=== PATIENT | female | born 1945 | race Caucasian/White ===

== ENCOUNTER → 2016-07-10 | Outpatient (REF) | payer MEDICARE, OTHER ==
[2016-07-10 16:06] LABS: ALBUMIN 3.8 GM/DL (3.2-5.2); ALBUMIN/GLOBULIN RATIO 1.31 (1.00-1.93); ALKALINE PHOSPHATASE 71 U/L (45-117); ALT/SGPT 18 U/L (12-78); ANION GAP 8 MEQ/L (8-16); AST/SGOT 18 U/L (15-37); BILIRUBIN,TOTAL 0.4 MG/DL (0.2-1.0); BLOOD UREA NITROGEN 12 MG/DL (7-18); CARBON DIOXIDE LEVEL 29 MEQ/L (21-32); CHLORIDE LEVEL 99 MEQ/L (98-107); CHOLESTEROL LEVEL 208 MG/DL (<200); CREATININE FOR GFR 0.72 MG/DL (0.55-1.02); GLOMERULAR FILTRATION RATE > 60.0 (>45); GLUCOSE, FASTING 97 MG/DL (80-110); POTASSIUM SERUM 3.8 MEQ/L (3.5-5.1); SODIUM LEVEL 136 MEQ/L (136-145); TOTAL PROTEIN 6.7 GM/DL (6.4-8.2); TRIGLYCERIDES LEVEL 115 MG/DL (<150)
== END ==
LOC: M LABDRAW1 15:28
PROVIDERS: ATTEND Nurse Practitioner Family
DX: E78.4 Other hyperlipidemia (principal); I10 Essential (primary) hypertension

== ENCOUNTER → 2016-12-02 | Outpatient (CLI) | payer MEDICARE, OTHER ==
[~2016-12-02] VITALS: Ht 149.9 cm; Wt 56.2 kg
[~2016-12-02] MED LIST: ASPI1TAB PO; ATEN25TA PO; HYDR12CA PO; LIDOCAINE 2% INJ 100 MG/5 ML SDV (FOR ANES.) As Ordered ONE; LISI30TA4 PO; MULTCAP11 PO; NS 1,000 ML IV ONE; OMEG100011 PO; PROPOFOL 200 MG/20 ML VIAL As Ordered ONE; VITA100L PO
--- NOTE | 2016-12-02 13:29 | ROOR ---
Patient Name: Mirela Machado Procedure Date: 12/02/2016 12:47 PM Date of : 1945 Age: 71 Room: [facility] Gender: Female Note Status: Finalized Procedure: Total Colonoscopy to Cecum Indications: Positive Cologuard test Providers: Edwin Velázquez MD Referring MD: Guillaume Erwin NP Requesting Provider: Medicines: Monitored Anesthesia Care Complications: No immediate complications. Procedure: Pre-Anesthesia Assessment: - The heart rate, respiratory rate, oxygen saturations, blood pressure, adequacy of pulmonary ventilation, and response to care were monitored throughout the procedure. The Colonoscope was introduced through the anus and advanced to the cecum, identified by appendiceal orifice and ileocecal valve. The colonoscopy was performed without difficulty. The patient tolerated the procedure well. The quality of the bowel preparation was excellent. Findings: The perianal and digital rectal examinations were normal. Non-bleeding internal hemorrhoids were found during retroflexion. The hemorrhoids were small and Grade I (internal hemorrhoids that do not prolapse). No other significant abnormalities were identified in a careful examination of the remainder of the colon. The exam was otherwise without abnormality on direct and retroflexion views. Impression: - Non-bleeding internal hemorrhoids. - The examination was otherwise normal on direct and retroflexion views. - No specimens collected. Recommendation: - Discharge patient to home. - Continue present medications. - Repeat colonoscopy for symptoms only. - Return to referring physician. - High fiber diet. - The findings and recommendations were discussed with the patient's family. Edwin Velázquez MD Edwin Velázquez MD 12/02/2016 1:29:30 PM This report has been signed electronically. Number of Addenda: 0 Note Initiated On: 12/02/2016 12:47 PM Estimated Blood Loss: Estimated blood loss: none.
[2016-12-02 13:50] VITALS: BP 132/96
== END | disposition home or self-care (01) ==
LOC: M OPP 11:00
PROVIDERS: ATTEND Internal Medicine Gastroenterology
DX: K64.0 First degree hemorrhoids (principal); K59.00 Constipation, unspecified; I10 Essential (primary) hypertension; M19.90 Unspecified osteoarthritis, unspecified site; Z79.899 Other long term (current) drug therapy; Z79.82 Long term (current) use of aspirin; Z88.0 Allergy status to penicillin

== ENCOUNTER → 2017-01-15 | Outpatient (REF) | payer MEDICARE, OTHER ==
[~2017-01-15] MED LIST changes: -LIDOCAINE 2% INJ 100 MG/5 ML SDV (FOR ANES.) As Ordered ONE; -NS 1,000 ML IV ONE; -PROPOFOL 200 MG/20 ML VIAL As Ordered ONE
[2017-01-15 16:35] LABS: ALBUMIN 3.5 GM/DL (3.2-5.2); ALBUMIN/GLOBULIN RATIO 1.13 (1.00-1.93); ALKALINE PHOSPHATASE 61 U/L (45-117); ALT/SGPT 22 U/L (12-78); ANION GAP 9 MEQ/L (8-16); AST/SGOT 17 U/L (15-37); BILIRUBIN,TOTAL 0.3 MG/DL (0.2-1.0); BLOOD UREA NITROGEN 12 MG/DL (7-18); CALCIUM LEVEL 8.7 MG/DL (8.8-10.2); CARBON DIOXIDE LEVEL 27 MEQ/L (21-32); CHLORIDE LEVEL 100 MEQ/L (98-107); CHOLESTEROL LEVEL 196 MG/DL (<200); CREATININE FOR GFR 0.59 MG/DL (0.55-1.02); GLOMERULAR FILTRATION RATE > 60.0 (>39); GLUCOSE, FASTING 92 MG/DL (83-110); POTASSIUM SERUM 3.8 MEQ/L (3.5-5.1); SODIUM LEVEL 136 MEQ/L (136-145); TOTAL PROTEIN 6.6 GM/DL (6.4-8.2); TRIGLYCERIDES LEVEL 115 MG/DL (<150)
[2017-01-15 16:45] LABS: BASO % 0.7 % (0.0-1.0); EOS # 0.1 K/mm3 (0.0-0.50); EOS % 1.6 % (0.0-3.0); LARGE UNSTAINED CELL # 0.1 K/mm3 (0.0-0.4); LARGE UNSTAINED CELL % 1.7 % (0.0-4.0); LYMPH % 17.3 % (24.0-44.0); MEAN CORPUSCULAR HEMOGLOBIN 30.6 pg (27.0-33.0); MEAN CORPUSCULAR HGB CONC 32.9 g/dl (32.0-36.5); MEAN CORPUSCULAR VOLUME 92.9 fl (80.0-96.0); MONO # 0.4 K/mm3 (0.0-0.8); MONO % 6.9 % (0.0-5.0); NEUTROPHILS # 3.6 K/mm3 (1.8-7.7); NEUTROPHILS % 71.7 % (36.0-66.0); PLATELET COUNT, AUTOMATED 328 k/mm3 (150-450); RED CELL DISTRIBUTION WIDTH 13.5 % (11.5-14.5)
== END ==
LOC: M LABDRAW1 13:51
PROVIDERS: ATTEND Nurse Practitioner Family
DX: K21.9 Gastro-esophageal reflux disease without esophagitis (principal); E78.4 Other hyperlipidemia; I10 Essential (primary) hypertension

== ENCOUNTER → 2017-02-19 | Outpatient (REF) | payer MEDICARE, OTHER ==
[2017-02-19 14:48] LABS: BASO % 0.9 % (0.0-1.0); EOS # 0.2 10^3/uL (0.0-0.50); EOS % 4.3 % (0.0-3.0); IMMATURE GRANULOCYTE % 0.2 % (0-0); LYMPH # 1.1 10^3/uL (1.5-4.5); LYMPH % 24.1 % (24.0-44.0); MEAN CORPUSCULAR HEMOGLOBIN 27.1 pg (27.0-33.0); MEAN CORPUSCULAR HGB CONC 31.6 g/dl (32.0-36.5); MEAN CORPUSCULAR VOLUME 85.8 fl (80.0-96.0); MONO # 0.4 10^3/uL (0.0-0.8); MONO % 9.3 % (0.0-5.0); NEUTROPHILS # 2.7 10^3/uL (1.8-7.7); NEUTROPHILS % 61.2 % (36.0-66.0); PLATELET COUNT, AUTOMATED 332 10^3/uL (150-450); RED CELL DISTRIBUTION WIDTH 14.6 % (11.5-14.5); WHITE BLOOD COUNT 4.4 10^3/uL (4.0-10.0)
[2017-02-19 15:25] LABS: ALBUMIN 3.7 GM/DL (3.2-5.2); ALBUMIN/GLOBULIN RATIO 1.28 (1.00-1.93); ALKALINE PHOSPHATASE 61 U/L (45-117); ALT/SGPT 21 U/L (12-78); ANION GAP 6 MEQ/L (8-16); AST/SGOT 18 U/L (15-37); BILIRUBIN,TOTAL 0.5 MG/DL (0.2-1.0); BLOOD UREA NITROGEN 11 MG/DL (7-18); CALCIUM LEVEL 9.3 MG/DL (8.8-10.2); CARBON DIOXIDE LEVEL 31 MEQ/L (21-32); CHLORIDE LEVEL 97 MEQ/L (98-107); CHOLESTEROL LEVEL 188 MG/DL (<200); CREATININE FOR GFR 0.49 MG/DL (0.55-1.02); GLOMERULAR FILTRATION RATE > 60.0 (>39); GLUCOSE, FASTING 85 MG/DL (83-110); POTASSIUM SERUM 4.4 MEQ/L (3.5-5.1); SODIUM LEVEL 134 MEQ/L (136-145); TOTAL PROTEIN 6.6 GM/DL (6.4-8.2); TRIGLYCERIDES LEVEL 76 MG/DL (<150)
== END ==
LOC: M LABDRAW1 10:48
PROVIDERS: ATTEND Nurse Practitioner Family
DX: K21.9 Gastro-esophageal reflux disease without esophagitis (principal); I10 Essential (primary) hypertension; E78.4 Other hyperlipidemia

== ENCOUNTER → 2017-03-26 | Outpatient (CLI) | payer MEDICARE, OTHER ==
--- NOTE | 2017-03-26 14:00 | REPMRS ---
Patient History The patient states she has not had a clinical breast exam in over a year. Patient is postmenopausal. No known family history of cancer. Digital Woman Screen Mammo: March 26, 2017 - Exam #: [id number] Bilateral CC and MLO view(s) were taken. Technologist: Nicole Moody, Technologist Prior study comparison: September 19, 2015, digital woman screen mammo performed at [facility] to [facility]. September 29, 2012, digital woman screen mammo performed at [facility] to [facility]. FINDINGS: There are scattered fibroglandular densities. There has been no change in the appearance of the mammogram from the prior studies. There is a mild amount of residual fibroglandular tissue which is fairly symmetric. There is no interval development of dominant mass, architectural distortion, or clustered microcalcification suggestive of malignancy. ASSESSMENT: BI-RADS/ACR category 1 mammogram. Negative. Recommendation Routine screening mammogram in 1 year (for women over age 40). This mammogram was interpreted with the aid of an FDA-approved computer-aided dectection system. Electronically Signed By: Anuel Gallegos MD 03/26/17 1400
== END ==
LOC: M WHC 12:58
PROVIDERS: ATTEND Nurse Practitioner Family
DX: Z12.31 Encounter for screening mammogram for malignant neoplasm of breast (principal)

== ENCOUNTER → 2017-07-21 | Outpatient (REF) | payer MEDICARE, OTHER ==
[2017-07-21 15:54] LABS: BASO % 0.7 % (0.0-1.0); EOS # 0.1 10^3/uL (0.0-0.50); EOS % 1.6 % (0.0-3.0); HEMATOCRIT 29.8 % (36.0-47.0); HEMOGLOBIN 9.4 g/dl (12.0-16.0); IMMATURE GRANULOCYTE % 0.2 % (0-3.0); MEAN CORPUSCULAR HEMOGLOBIN 27.3 pg (27.0-33.0); MEAN CORPUSCULAR HGB CONC 31.5 g/dl (32.0-36.5); MEAN CORPUSCULAR VOLUME 86.6 fl (80.0-96.0); MONO # 0.5 10^3/uL (0.0-0.8); MONO % 8.2 % (0.0-5.0); NEUTROPHILS % 71.3 % (36.0-66.0); PLATELET COUNT, AUTOMATED 356 10^3/uL (150-450); RED BLOOD COUNT 3.44 10^6/uL (4.00-5.40); RED CELL DISTRIBUTION WIDTH 14.4 % (11.5-14.5); WHITE BLOOD COUNT 5.6 10^3/uL (4.0-10.0)
== END ==
LOC: M LABDRAW1 14:33
DX: K21.9 Gastro-esophageal reflux disease without esophagitis (principal)
CPT/HCPCS: 85025

== ENCOUNTER → 2017-08-11 | Outpatient (REF) | payer MEDICARE, OTHER ==
[2017-08-11 15:55] LABS: ALBUMIN 3.7 GM/DL (3.2-5.2); ALBUMIN/GLOBULIN RATIO 1.09 (1.00-1.93); ALKALINE PHOSPHATASE 76 U/L (45-117); ALT/SGPT 20 U/L (12-78); ANION GAP 6 MEQ/L (8-16); AST/SGOT 20 U/L (7-37); BILIRUBIN,TOTAL 0.5 MG/DL (0.2-1.0); BLOOD UREA NITROGEN 12 MG/DL (7-18); CALCIUM LEVEL 8.6 MG/DL (8.8-10.2); CARBON DIOXIDE LEVEL 28 MEQ/L (21-32); CHLORIDE LEVEL 101 MEQ/L (98-107); CHOLESTEROL LEVEL 184 MG/DL (<200); CHOLESTEROL RISK RATIO 2.216 (<5); CREATININE FOR GFR 0.66 MG/DL (0.55-1.30); GLOMERULAR FILTRATION RATE > 60.0 (>39); GLUCOSE, FASTING 90 MG/DL (70-100); HDL CHOLESTEROL 83 MG/DL (>40); IRON (FE) 21 UG/DL (50-170); NON-HDL-C 101 MG/DL; POTASSIUM SERUM 3.6 MEQ/L (3.5-5.1); SODIUM LEVEL 135 MEQ/L (136-145); TOTAL PROTEIN 7.1 GM/DL (6.4-8.2); TRIGLYCERIDES LEVEL 55 MG/DL (<150)
[2017-08-11 16:02] LABS: VITAMIN B12 LEVEL 812 PG/ML
[2017-08-11 16:03] LABS: FOLATE > 24.0 NG/ML
[2017-08-11 16:07] LABS: BASO # 0.1 10^3/uL (0.0-0.2); BASO % 1.1 % (0.0-1.0); EOS # 0.1 10^3/uL (0.0-0.50); EOS % 1.9 % (0.0-3.0); HEMOGLOBIN 9.3 g/dl (12.0-15.5); IMMATURE GRANULOCYTE % 0.2 % (0-3.0); LYMPH # 0.8 10^3/uL (1.5-4.5); LYMPH % 17.8 % (24.0-44.0); MEAN CORPUSCULAR HEMOGLOBIN 26.5 pg (27.0-33.0); MEAN CORPUSCULAR VOLUME 85.5 fl (80.0-96.0); MONO # 0.4 10^3/uL (0.0-0.8); MONO % 8.5 % (0.0-5.0); NEUTROPHILS # 3.3 10^3/uL (1.8-7.7); NEUTROPHILS % 70.5 % (36.0-66.0); PLATELET COUNT, AUTOMATED 342 10^3/uL (150-450); RED BLOOD COUNT 3.51 10^6/uL (4.00-5.40); RED CELL DISTRIBUTION WIDTH 14.5 % (11.5-14.5); WHITE BLOOD COUNT 4.7 10^3/uL (4.0-10.0)
== END ==
LOC: M LABDRAW1 11:11
DX: D64.9 Anemia, unspecified (principal); E78.4 Other hyperlipidemia; I10 Essential (primary) hypertension
CPT/HCPCS: 82746

== ENCOUNTER → 2017-09-08 | Outpatient (REF) | payer MEDICARE, OTHER ==
[2017-09-08 16:01] LABS: BASO # 0.1 10^3/uL (0.0-0.2); EOS # 0.1 10^3/uL (0.0-0.50); EOS % 1.3 % (0.0-3.0); HEMATOCRIT 29.7 % (36.0-47.0); HEMOGLOBIN 9.4 g/dl (12.0-15.5); IMMATURE GRANULOCYTE % 0.2 % (0-3.0); LYMPH # 1.1 10^3/uL (1.5-4.5); LYMPH % 17.3 % (24.0-44.0); MEAN CORPUSCULAR HEMOGLOBIN 25.4 pg (27.0-33.0); MEAN CORPUSCULAR HGB CONC 31.6 g/dl (32.0-36.5); MEAN CORPUSCULAR VOLUME 80.3 fl (80.0-96.0); MONO # 0.6 10^3/uL (0.0-0.8); MONO % 8.7 % (0.0-5.0); NEUTROPHILS # 4.5 10^3/uL (1.8-7.7); NEUTROPHILS % 71.5 % (36.0-66.0); PLATELET COUNT, AUTOMATED 361 10^3/uL (150-450); RED CELL DISTRIBUTION WIDTH 14.6 % (11.5-14.5); WHITE BLOOD COUNT 6.3 10^3/uL (4.0-10.0)
[2017-09-08 16:07] LABS: IRON (FE) 39 UG/DL (50-170)
== END ==
LOC: M LABDRAW1 13:45
DX: E61.1 Iron deficiency (principal)
CPT/HCPCS: 83540

== ENCOUNTER → 2017-10-13 | Outpatient (REF) | payer MEDICARE, OTHER ==
[2017-10-13 19:31] LABS: IRON (FE) 12 UG/DL (50-170)
[2017-10-13 19:32] LABS: BASO # 0.1 10^3/uL (0.0-0.2); BASO % 0.8 % (0.0-1.0); EOS # 0.1 10^3/uL (0.0-0.50); HEMATOCRIT 29.7 % (36.0-47.0); HEMOGLOBIN 9.2 g/dl (12.0-15.5); IMMATURE GRANULOCYTE % 0.2 % (0-3.0); LYMPH # 1.2 10^3/uL (1.5-4.5); LYMPH % 19.6 % (24.0-44.0); MEAN CORPUSCULAR HEMOGLOBIN 24.9 pg (27.0-33.0); MEAN CORPUSCULAR VOLUME 80.3 fl (80.0-96.0); MONO # 0.5 10^3/uL (0.0-0.8); NEUTROPHILS % 68.4 % (36.0-66.0); PLATELET COUNT, AUTOMATED 373 10^3/uL (150-450); WHITE BLOOD COUNT 5.9 10^3/uL (4.0-10.0)
== END ==
LOC: M LABDRAW1 18:11
DX: E61.1 Iron deficiency (principal)
CPT/HCPCS: 83540

== ENCOUNTER → 2017-11-18 | Outpatient (REF) | payer MEDICARE, OTHER ==
[2017-11-18 16:20] LABS: IRON (FE) 20 UG/DL (50-170); PERCENT SATURATION 4.3 % (13.2-45.0); REASON FOR REVIEW RBC MORPHOLOGY; SLIDE REVIEW Report; SOURCE PERIPHERAL SMEAR; TOTAL IRON BINDING CAPACITY 468 UG/DL (250-450)
[2017-11-18 16:24] LABS: BASO # 0.1 10^3/uL (0.0-0.2); BASO % 1.1 % (0.0-1.0); EOS # 0.1 10^3/uL (0.0-0.50); EOS % 2.1 % (0.0-3.0); HEMATOCRIT 30.7 % (36.0-47.0); HEMOGLOBIN 9.6 g/dl (12.0-15.5); IMMATURE GRANULOCYTE % 0.2 % (0-3.0); LYMPH # 1.1 10^3/uL (1.5-4.5); LYMPH % 21.5 % (24.0-44.0); MEAN CORPUSCULAR HEMOGLOBIN 24.9 pg (27.0-33.0); MEAN CORPUSCULAR HGB CONC 31.3 g/dl (32.0-36.5); MEAN CORPUSCULAR VOLUME 79.7 fl (80.0-96.0); MONO # 0.4 10^3/uL (0.0-0.8); MONO % 8.2 % (0.0-5.0); NEUTROPHILS # 3.5 10^3/uL (1.8-7.7); NEUTROPHILS % 66.9 % (36.0-66.0); PLATELET COUNT, AUTOMATED 351 10^3/uL (150-450); RED BLOOD COUNT 3.85 10^6/uL (4.00-5.40); RED CELL DISTRIBUTION WIDTH 20.3 % (11.5-14.5); WHITE BLOOD COUNT 5.3 10^3/uL (4.0-10.0)
== END ==
LOC: M LABDRAW1 15:40
DX: E61.1 Iron deficiency (principal)
CPT/HCPCS: 83550

== ENCOUNTER → 2018-04-01 | Outpatient (CLI) | payer MEDICARE, OTHER | LOC: M WHC 14:53 | DX: Z12.31 Encounter for screening mammogram for malignant neoplasm of breast (principal) | CPT/HCPCS: 77067 ==

== ENCOUNTER → 2018-04-13 | Outpatient (REF) | payer MEDICARE, OTHER ==
[2018-04-13 20:02] LABS: BASO # 0.1 10^3/uL (0.0-0.2); BASO % 0.8 % (0.0-1.0); EOS # 0.2 10^3/uL (0.0-0.50); EOS % 2.4 % (0.0-3.0); HEMATOCRIT 38.5 % (36.0-47.0); HEMOGLOBIN 12.7 g/dl (12.0-15.5); IMMATURE GRANULOCYTE % 0.2 % (0-3.0); LYMPH # 1.1 10^3/uL (1.5-4.5); LYMPH % 17.9 % (24.0-44.0); MONO # 0.6 10^3/uL (0.0-0.8); MONO % 9.3 % (0.0-5.0); NEUTROPHILS # 4.3 10^3/uL (1.8-7.7); NEUTROPHILS % 69.4 % (36.0-66.0); PLATELET COUNT, AUTOMATED 288 10^3/uL (150-450); RED BLOOD COUNT 3.85 10^6/uL (4.00-5.40); RED CELL DISTRIBUTION WIDTH 13.2 % (11.5-14.5); WHITE BLOOD COUNT 6.2 10^3/uL (4.0-10.0)
[2018-04-13 20:08] LABS: FERRITIN 18 NG/ML (8-252)
[2018-04-14 09:55] LABS: IRON (FE) 155 UG/DL (50-170)
== END ==
LOC: M LABDRWAD 19:11
DX: E61.1 Iron deficiency (principal)
CPT/HCPCS: 83540

== ENCOUNTER → 2018-08-19 | Outpatient (REF) | payer MEDICARE, OTHER ==
[~2018-08-19] MED LIST changes: -ASPI1TAB PO; +ASPI81TA26 PO; +LISI-672 PO; -LISI30TA4 PO
[2018-08-19 12:56] LABS: BASO # 0.1 10^3/uL (0.0-0.2); EOS # 0.1 10^3/uL (0.0-0.50); EOS % 1.8 % (0.0-3.0); HEMATOCRIT 30.1 % (36.0-47.0); HEMOGLOBIN 9.8 g/dl (12.0-15.5); LYMPH # 1.3 10^3/uL (1.5-4.5); LYMPH % 21.2 % (24.0-44.0); MEAN CORPUSCULAR HEMOGLOBIN 28.4 pg (27.0-33.0); MEAN CORPUSCULAR HGB CONC 32.6 g/dl (32.0-36.5); MEAN CORPUSCULAR VOLUME 87.2 fl (80.0-96.0); MONO # 0.5 10^3/uL (0.0-0.8); MONO % 8.4 % (0.0-5.0); NEUTROPHILS # 4.1 10^3/uL (1.8-7.7); NEUTROPHILS % 67.4 % (36.0-66.0); PLATELET COUNT, AUTOMATED 324 10^3/uL (150-450); RED BLOOD COUNT 3.45 10^6/uL (4.00-5.40); WHITE BLOOD COUNT 6.1 10^3/uL (4.0-10.0)
[2018-08-19 13:20] LABS: ALBUMIN 3.6 GM/DL (3.2-5.2); ALT/SGPT 19 U/L (12-78); BILIRUBIN,TOTAL 0.4 MG/DL (0.2-1.0); BLOOD UREA NITROGEN 8 MG/DL (7-18); CALCIUM LEVEL 8.9 MG/DL (8.8-10.2); CARBON DIOXIDE LEVEL 28 MEQ/L (21-32); CHLORIDE LEVEL 101 MEQ/L (98-107); CHOLESTEROL LEVEL 222 MG/DL (<200); CHOLESTEROL RISK RATIO 2.846 (<5); CREATININE FOR GFR 0.66 MG/DL (0.55-1.30); GLOMERULAR FILTRATION RATE > 60.0 (>39); GLUCOSE, FASTING 97 MG/DL (70-100); HDL CHOLESTEROL 78 MG/DL (>40); IRON (FE) 20 UG/DL (50-170); LDL CHOLESTEROL 127 MG/DL (<100); NON-HDL-C 144 MG/DL; POTASSIUM SERUM 4.1 MEQ/L (3.5-5.1); SODIUM LEVEL 136 MEQ/L (136-145); TOTAL PROTEIN 6.6 GM/DL (6.4-8.2); TRIGLYCERIDES LEVEL 87 MG/DL (<150)
== END ==
LOC: M LABDRWAD 12:21
PROVIDERS: ATTEND Nurse Practitioner Family
DX: E61.1 Iron deficiency (principal); I10 Essential (primary) hypertension

== ENCOUNTER → 2018-09-14 | Outpatient (REF) | payer MEDICARE, OTHER ==
[2018-09-14 13:51] LABS: BASO # 0.1 10^3/uL (0.0-0.2); BASO % 0.9 % (0.0-1.0); EOS # 0.2 10^3/uL (0.0-0.50); EOS % 2.7 % (0.0-3.0); HEMATOCRIT 26.3 % (36.0-47.0); HEMOGLOBIN 8.2 g/dl (12.0-15.5); LYMPH % 15.9 % (24.0-44.0); MEAN CORPUSCULAR HEMOGLOBIN 27.4 pg (27.0-33.0); MEAN CORPUSCULAR HGB CONC 31.2 g/dl (32.0-36.5); MONO # 0.6 10^3/uL (0.0-0.8); MONO % 9.8 % (0.0-5.0); NEUTROPHILS # 4.5 10^3/uL (1.8-7.7); NEUTROPHILS % 70.4 % (36.0-66.0); PLATELET COUNT, AUTOMATED 376 10^3/uL (150-450); RED BLOOD COUNT 2.99 10^6/uL (4.00-5.40); WHITE BLOOD COUNT 6.3 10^3/uL (4.0-10.0)
== END ==
LOC: M LABDRWAD 13:35
PROVIDERS: ATTEND Nurse Practitioner Family
DX: E61.1 Iron deficiency (principal)

== ENCOUNTER → 2018-09-21 | Outpatient (REF) | payer MEDICARE, OTHER ==
[2018-09-23 10:17] LABS: FOLATE 22.1 NG/ML
== END ==
LOC: M LABDRWAD 20:53
PROVIDERS: ATTEND Nurse Practitioner Family
DX: D64.9 Anemia, unspecified (principal)

== ENCOUNTER → 2019-03-08 | Outpatient (REF) | payer MEDICARE, OTHER ==
[2019-03-08 12:49] LABS: BASO # 0.1 10^3/uL (0.0-0.2); BASO % 1.2 % (0.0-1.0); EOS # 0.1 10^3/uL (0.0-0.5); EOS % 2.3 % (0.0-3.0); HEMATOCRIT 28.2 % (36.0-47.0); HEMOGLOBIN 8.6 g/dl (12.0-15.5); LYMPH # 1.4 10^3/uL (1.5-5.0); LYMPH % 24.4 % (24.0-44.0); MEAN CORPUSCULAR HEMOGLOBIN 25.6 pg (27.0-33.0); MEAN CORPUSCULAR HGB CONC 30.5 g/dl (32.0-36.5); MEAN CORPUSCULAR VOLUME 83.9 fl (80.0-96.0); MONO # 0.6 10^3/uL (0.0-0.8); NEUTROPHILS # 3.4 10^3/uL (1.5-8.5); NEUTROPHILS % 60.7 % (36.0-66.0); PLATELET COUNT, AUTOMATED 331 10^3/uL (150-450); RED BLOOD COUNT 3.36 10^6/uL (4.00-5.40); WHITE BLOOD COUNT 5.6 10^3/uL (4.0-10.0)
[2019-03-08 13:01] LABS: ALBUMIN 3.4 GM/DL (3.2-5.2); ALT/SGPT 18 U/L (12-78); BILIRUBIN,TOTAL 0.3 MG/DL (0.2-1.0); BLOOD UREA NITROGEN 14 MG/DL (7-18); CALCIUM LEVEL 9.2 MG/DL (8.8-10.2); CARBON DIOXIDE LEVEL 30 MEQ/L (21-32); CHLORIDE LEVEL 102 MEQ/L (98-107); CREATININE FOR GFR 0.64 MG/DL (0.55-1.30); FERRITIN 5 NG/ML (8-252); GLOMERULAR FILTRATION RATE > 60.0 (>39); GLUCOSE, FASTING 97 MG/DL (70-100); IRON (FE) 18 UG/DL (50-170); POTASSIUM SERUM 4.9 MEQ/L (3.5-5.1); SODIUM LEVEL 136 MEQ/L (136-145); TOTAL IRON BINDING CAPACITY 448 UG/DL (250-450); TOTAL PROTEIN 6.7 GM/DL (6.4-8.2)
== END ==
LOC: M SFHCADAM 10:30
PROVIDERS: ATTEND Physician Assistant Medical
DX: I10 Essential (primary) hypertension (principal); D50.9 Iron deficiency anemia, unspecified
CPT/HCPCS: 80053; 82728; 83550; 84443; 85025; 90682; G0008; G0463

== ENCOUNTER → 2019-05-11 | Outpatient (REF) | payer MEDICARE, OTHER ==
[2019-05-11 17:54] LABS: BASO # 0.1 10^3/uL (0.0-0.2); BASO % 0.6 % (0.0-1.0); EOS # 0.1 10^3/uL (0.0-0.5); EOS % 0.9 % (0.0-3.0); HEMATOCRIT 26.7 % (36.0-47.0); HEMOGLOBIN 7.9 g/dl (12.0-15.5); LYMPH # 2.6 10^3/uL (1.5-5.0); LYMPH % 31.5 % (24.0-44.0); MEAN CORPUSCULAR HEMOGLOBIN 23.8 pg (27.0-33.0); MEAN CORPUSCULAR HGB CONC 29.6 g/dl (32.0-36.5); MEAN CORPUSCULAR VOLUME 80.4 fl (80.0-96.0); MONO # 0.8 10^3/uL (0.0-0.8); MONO % 9.4 % (0.0-5.0); NEUTROPHILS # 4.7 10^3/uL (1.5-8.5); NEUTROPHILS % 57.4 % (36.0-66.0); PLATELET COUNT, AUTOMATED 414 10^3/uL (150-450); RED BLOOD COUNT 3.32 10^6/uL (4.00-5.40); WHITE BLOOD COUNT 8.2 10^3/uL (4.0-10.0)
[2019-05-11 18:00] LABS: PERCENT SATURATION 1.8 % (13.2-45.0)
== END ==
LOC: M SFHCADAM 11:06
PROVIDERS: ATTEND Physician Assistant Medical
DX: D50.9 Iron deficiency anemia, unspecified (principal)

== ENCOUNTER → 2019-05-20 | Outpatient (CLI) | payer MEDICARE, OTHER ==
[~2019-05-20] MED LIST changes: +B-12100T2 PO; +MULTCAP PO; +PANT40TA3 PO
== END ==
LOC: M LAB 13:46
PROVIDERS: ATTEND Physician Assistant Medical
DX: D50.9 Iron deficiency anemia, unspecified (principal)
CPT/HCPCS: 36415; 86850; 86900; 86901; G0463

== ENCOUNTER 2019-05-21 07:43 | Outpatient (CLI) | payer MEDICARE, OTHER ==
[~2019-05-21] VITALS: Ht 149.9 cm; Wt 56.8 kg
[~2019-05-21 07:43] MED LIST changes: -B-12100T2 PO; -MULTCAP PO; -PANT40TA3 PO
[2019-05-21 08:20] VITALS: BP 148/70
[2019-05-21 08:35] VITALS: BP 149/65
[2019-05-21 09:20] VITALS: BP 142/76
[2019-05-21 09:50] VITALS: BP 181/75
[2019-05-21 10:39] VITALS: BP 154/72
== END 2019-05-21 10:40 | disposition home or self-care (01) ==
LOC: M INFU 07:43
PROVIDERS: ATTEND Physician Assistant Medical
DX: D50.9 Iron deficiency anemia, unspecified (principal); Z91.018 Allergy to other foods
CPT/HCPCS: 36430; 86920; P9016

== ENCOUNTER 2019-05-25 11:18 | Outpatient (CLI) | payer MEDICARE, OTHER ==
[~2019-05-25] VITALS: Ht 149.9 cm; Wt 56.8 kg
[2019-05-25 11:30] VITALS: BP 142/65
[2019-05-25] MEDS ORDERED: IRON SUCROSE 75 MG in NS 100 ML IV ONE (11:45)
[2019-05-25] MEDS ORDERED: IRON SUCROSE 25 MG in NS 25 ML IV ONE (11:45)
[2019-05-25] MEDS ORDERED: IRON SUCROSE 200 MG in NS 200 ML IV ONE (12:00)
[2019-05-25 12:30] VITALS: BP 132/68
[2019-05-25 13:20] VITALS: BP 128/71
[2019-05-25 14:08] VITALS: BP 137/65
[2019-05-25 14:30] VITALS: BP 137/65
[2019-05-25 15:00] VITALS: BP 160/81
== END 2019-05-25 15:00 | disposition home or self-care (01) ==
LOC: M INFU 11:18
PROVIDERS: ATTEND Physician Assistant Medical
DX: D50.9 Iron deficiency anemia, unspecified (principal); Z88.0 Allergy status to penicillin
CPT/HCPCS: 96374; J1756

== ENCOUNTER 2019-05-29 11:52 | Inpatient (IN) | payer MEDICARE, OTHER ==
[~2019-05-29] VITALS: Ht 149.9 cm; Wt 53.1 kg
[2019-05-29] VITALS (7 sets, daily range): BP systolic 131–168; BP diastolic 56–83
--- NOTE | 2019-05-29 14:16 | REP ---
Left upper extremity duplex venous ultrasound: History: Left arm swelling. Pain. Status post iron infusion on May 25, 2019. Findings: There is occlusive thrombosis of the median cubital vein and the distal cephalic vein. The mid and proximal cephalic vein are patent and unremarkable. Brachial veins and basilic vein are unremarkable on two-dimensional scanning, compressible, and with normal color Doppler. Similarly, the left subclavian and axillary and internal jugular vein segments are clear. Impression: There is occlusive thrombus in the median cubital vein and in the distal cephalic vein just above the antecubital fossa. Electronically Signed by Franklin Finley MD 05/29/2019 03:07 P
[2019-05-29] MEDS: NS 1,000 ML IV SCH ×2 (14:32→20:41)
[2019-05-29 14:47] LABS: BASO % 0.8 % (0.0-1.0); EOS # 0.2 10^3/uL (0.0-0.5); EOS % 3.3 % (0.0-3.0); HEMATOCRIT 23.1 % (36.0-47.0); LYMPH # 1.2 10^3/uL (1.5-5.0); LYMPH % 22.4 % (24.0-44.0); MEAN CORPUSCULAR HEMOGLOBIN 23.9 pg (27.0-33.0); MEAN CORPUSCULAR HGB CONC 28.6 g/dl (32.0-36.5); MEAN CORPUSCULAR VOLUME 83.7 fl (80.0-96.0); MONO # 0.4 10^3/uL (0.0-0.8); MONO % 7.9 % (0.0-5.0); NEUTROPHILS # 3.4 10^3/uL (1.5-8.5); NEUTROPHILS % 65.4 % (36.0-66.0); PLATELET COUNT, AUTOMATED 316 10^3/uL (150-450); RED BLOOD COUNT 2.76 10^6/uL (4.00-5.40); WHITE BLOOD COUNT 5.2 10^3/uL (4.0-10.0)
[2019-05-29 14:55] LABS: HEMOGLOBIN 6.6 g/dl (12.0-15.5)
[2019-05-29] MEDS ORDERED: ISOVUE-370 76% 100ML VIAL (Q9967) As Ordered ONE (14:58)
[2019-05-29 15:04] LABS: INR 1.03; PROTHROMBIN TIME 13.2 SECONDS (11.8-14.0)
[2019-05-29 15:05] LABS: PARTIAL THROMBOPLASTIN TIME 30.1 SECONDS (25.0-38.4)
--- NOTE | 2019-05-29 15:08 | ECGEPIP ---
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
[2019-05-29 15:13] LABS: ALBUMIN 3.1 GM/DL (3.2-5.2); ALT/SGPT 15 U/L (12-78); BILIRUBIN,TOTAL 0.3 MG/DL (0.2-1.0); BLOOD UREA NITROGEN 11 MG/DL (7-18); CALCIUM LEVEL 8.6 MG/DL (8.8-10.2); CARBON DIOXIDE LEVEL 27 MEQ/L (21-32); CHLORIDE LEVEL 103 MEQ/L (98-107); CREATININE FOR GFR 0.79 MG/DL (0.55-1.30); GLOMERULAR FILTRATION RATE > 60.0 (>39); GLUCOSE, FASTING 91 MG/DL (70-100); POTASSIUM SERUM 4.9 MEQ/L (3.5-5.1); SODIUM LEVEL 138 MEQ/L (136-145); TOTAL PROTEIN 6.2 GM/DL (6.4-8.2)
[2019-05-29] MEDS ORDERED: PANTOPRAZOLE 40MG INJ (PROTONIX) (C9113) IV ONE (15:30)
[2019-05-29] MEDS ORDERED: B-12100T2 PO (15:55)
[2019-05-29] MEDS ORDERED: MULTCAP PO (15:55)
[2019-05-29] MEDS ORDERED: ATEN25TA PO (15:55)
[2019-05-29] MEDS ORDERED: hydrALAZINE INJ 20 MG/ML VIAL IV PRN (17:00)
[2019-05-29] MEDS ORDERED: ACETAMINOPHEN TAB 650MG DOSE (2X325MG) PO PRN (17:00)
[2019-05-29] MEDS ORDERED: hydrALAZINE INJ 20 MG/ML VIAL IV STA (17:30)
[2019-05-29 17:53] LABS: HEMATOCRIT 22.4 % (36.0-47.0); HEMOGLOBIN 6.5 g/dl (12.0-15.5)
--- NOTE | 2019-05-29 17:58 | HPEPDOC ---
[facility] Medical History & Physical Date of Admission May 29, 2019 Date of Service: May 29, 2019 Primary Care Physician: TESSA CARDENAS PA-C Attending Physician: MISBAH GUILLEN MD History and Physical CHIEF COMPLAINT: Arm pain HISTORY OF PRESENT ILLNESS: Patient is 73-year-old female with past medical history with a past medical history significant of iron deficiency anemia. Iron deficiency anemia, hypertension, presented sent to the emergency department left upper extremity pain and swelling following iron infusion on 05/25. Patient complained of left antecubital pain, redness, swelling, and that has progressed since the infusion. This was patient's first ever. This was patient's first ever iron infusion for iron deficiency anemia that was diagnosed 3 years ago. During the initial evaluation, it was discovered the patient had a hemoglobin of 6.6, with a h emoglobin of 23.1. Her previous measurements for hemoglobin and hematocrit were was 7.9 and 26.7 respectively. She was also fecal occult positive in the ED. She denied any blood red blood per rectum, denied abdominal pain, denies any ulcers, denied any epigastric pain, she did report a history of he morrhoids. Patient's last colonoscopy was dated 12/02/2016, performed by Dr. Velázquez due to a positive: Blayne test. Results indicated nonbleeding internal hemorrhoids, with an otherwise normal examination. On direct and retroflex views. . She denied any weight loss, denies any dysphasia, denied any increase in abdominal pain, denied any history of heartburn. She reported shortness of breath and dizziness. A left upper extremity duplex ultrasound was positive for occlusive thrombosis in the median antecubital vein and distal cephalic vein just above the antecubital fossa. Hospital team was called for admission for left upper extremity occlusion and symptomatic anemia. PAST MEDICAL HISTORY: Iron deficiency anemia, hypertension, PAST SURGICAL HISTORY: No history of surgeries SOCIAL HISTORY: Former tobacco smoker, occasional alcohol socially, denies any illicit drug use FAMILY HISTORY: Father of possible clots at age 63. ALLERGIES: Please see below. REVIEW OF SYSTEMS: CONSTITUTIONAL: No fevers, denies chills, denies weight loss, denies lethargy, admits to dizziness HEENT: No rhinorrhea, no itchy eyes, no congesion, CARDIOVASCULAR: No murmurs no palpitations and arrhythmias RESPIRATORY: Admits to shortness of breath GASTROINTESTINAL: No nausea, no vomiting, no difficulty swallowing, no pain with eating, no diarrhea HEMATOLOGICAL: No bleeding GENITOURINARY:No Issues, no hematuria HEMATOLOGIC/LYMPHATIC: No swelling Physical exam VITALS: See Below GENERAL APPEARANCE: Alert no acute distress. Is an elderly female SKIN: Warm, well perfused. ENT: Moist oral mucosa, LUNGS: Clear to auscultation bilaterally. HEART: Normal S1, S2. No murmurs, no rubs, no gallops ABDOMEN: Soft. No masses. Bowel sounds are present. TRUNK/SPINE:Straight. EXTREMITIES: Left antecubital fossa, has some slight erythema, tender to palpate, no discoloration, skin is slightly raised and indurated, PULSES: 2+ upper and lower extremity . HOME MEDICATIONS: Please see below. LABORATORY DATA: See below. IMAGING: Duplex ultrasound of right upper left extremity Impression: There is occlusive thrombus in the median cubital vein and in the distal cephalic vein just above the antecubital fossa. CT angiogram of the chest: Pending official report, sign off from ED physician s tated that there was no pulmonary embolus MICROBIOLOGY: Please see below. ASSESSMENT: Patient is a 73-year-old female with a past medical history of iron deficiency anemia as well as hypertension. Presented with pain and tenderness in her left upper extremity in her antecubital fossa, followed iron infusion. Initial evaluation showed the patient had a hemoglobin of 6.6, along with a positive f ecal occult. One unit of RBC was transfused to patient. Patient will be admitted for symptomatic GI bleed, and superficial thrombophlebitis secondary to iron infusion. PLAN: #GI bleed -Presented hemoglobin and hematocrit was 6.6, and 23.1 respectively -One unit of packed red blood cells ordered -Patient's last colonoscopy was dated 12/02/2016, performed by Dr. Velázquez due to a positive: Blayne test. Results indicated nonbleeding internal hemorrhoids, with an otherwise normal examination. On direct and retroflex views. -Surgery consulted #Superficial thrombophlebitis of the median cubital vein and distal cephalic vein, secondary to iron infusion. -No need for anticoagulation due to distance from axillary vein, -Will treat supportively with cold compresses -If worsening thrombophlebitis. Consider anti-inflammation, such as NSAIDs #Resistant hypertension, patient is on 4 antihypertensive medication and continue to have high BP -Will continue home medications -Evaluate for secondary causes of hypertension with renal ultrasound, aldosterone, and, aldosterone renin ratio, -When necessary 10 g of IV hydralazine every 6 hours for systolic over 160 #Anemia secondary to iron deficiency anemia -Obtain iron levels, obtain, ferritin levels, -One unit of RBC -Patient is unable to tolerate iron supplementation due to severe constipation caused by iron supplementation #DVT -TEDS Vital Signs Vital Signs Date Time Temp Pulse Resp B/P (MAP) Pulse Ox O2 Delivery O2 Flow Rate FiO2 05/29/19 15:33 80 183/79 (113) 81 206/96 (132) 82 238/114 (155) 05/29/19 15:32 16 99 Room Air 05/29/19 11:52 97.7 Laboratory Data Labs 24H Laboratory Tests 2 05/29/19 14:22: Immature Granulocyte % (Auto) 0.2, Neutrophils (%) (Auto) 65.4, Lymphocytes (%) (Auto) 22.4L, Monocytes (%) (Auto) 7.9H, Eosinophils (%) (Auto) 3.3H, Basophils (%) (Auto) 0.8, Neutrophils # (Auto) 3.4, Lymphocytes # (Auto) 1.2L, Monocytes # (Auto) 0.4, Eosinophils # (Auto) 0.2, Basophils # (Auto) 0.0, Nucleated Red Blood Cells % (auto) 0.0, Prothrombin Time 13.2, Prothromb Time International Ratio 1.03, Activated Partial Thromboplast Time 30.1, Anion Gap 8, Glomerular Filtration Rate > 60.0, Calcium Level 8.6L, Total Bilirubin 0.3, Aspartate Amino Transf (AST/SGOT) 49H, Alanine Aminotransferase (ALT/SGPT) 15, Alkaline Phosphatase 62, Total Protein 6.2L, Albumin 3.1L, Albumin/Globulin Ratio 1.00 05/29/19 14:37: POC Glucose (Misc Panel) 97, POC Sodium (Misc Panel) 135L, POC Potassium (Misc Panel) 3.7, POC Chloride (Misc Panel) 101, POC Total CO2 (Misc Panel) 24.0, POC Blood Urea Nitrogen (Misc Panel 11, POC Ionized Calcium (Misc Panel) 4.4L, POC Creatinine (Misc Panel) 0.8, POC Hematocrit (Misc Panel) 20.0L CBC/BMP Laboratory Tests 05/29/19 14:22 Home Medications Scheduled Atenolol (Atenolol) 25 Mg Tablet, 25 MG PO DAILY Cyanocobalamin (Vitamin B-12) (Vitamin B-12) 100 Mcg Tablet, 100 MCG PO DAILY Hydrochlorothiazide (Hydrochlorothiazide) 12.5 Mg Cap, 12.5 MG PO DAILY Lisinopril (Lisinopril) 30 Mg Tab, 30 MG PO DAILY Multivitamin (Multivitamins) 1 Each Capsule, 1 CAP PO DAILY [place]-3 Fatty Acids/Fish Oil ([place] 3 1,000 mg Softgel) 1 Cap Cap, 1,000 CAP PO DAILY Allergies Coded Allergies: Penicillins (Verified Allergy, Severe, DIFFICULTY BREATHING AND SWELLING, 05/24/19) GUNNAR BERG DO May 29, 2019 17:21
[2019-05-29 18:14] LABS: PERCENT SATURATION 2.5 % (13.2-45.0)
[2019-05-29] MEDS: PANTOPRAZOLE 40MG INJ (PROTONIX) (C9113) IV SCH (20:41)
[2019-05-30] VITALS (7 sets, daily range): BP systolic 120–188; BP diastolic 20–92
[2019-05-30] MEDS: NS 1,000 ML IV SCH ×2 (05:00→14:37)
[2019-05-30 05:26] LABS: HEMATOCRIT 25.4 % (36.0-47.0); HEMOGLOBIN 7.6 g/dl (12.0-15.5); MEAN CORPUSCULAR HEMOGLOBIN 25.1 pg (27.0-33.0); MEAN CORPUSCULAR HGB CONC 29.9 g/dl (32.0-36.5); MEAN CORPUSCULAR VOLUME 83.8 fl (80.0-96.0); PLATELET COUNT, AUTOMATED 265 10^3/uL (150-450); RED BLOOD COUNT 3.03 10^6/uL (4.00-5.40); WHITE BLOOD COUNT 4.4 10^3/uL (4.0-10.0)
[2019-05-30 05:41] LABS: BLOOD UREA NITROGEN 6 MG/DL (7-18); CALCIUM LEVEL 8.1 MG/DL (8.8-10.2); CARBON DIOXIDE LEVEL 24 MEQ/L (21-32); CHLORIDE LEVEL 109 MEQ/L (98-107); CREATININE FOR GFR 0.59 MG/DL (0.55-1.30); GLOMERULAR FILTRATION RATE > 60.0 (>39); GLUCOSE, FASTING 89 MG/DL (70-100); POTASSIUM SERUM 3.3 MEQ/L (3.5-5.1); SODIUM LEVEL 139 MEQ/L (136-145)
--- NOTE | 2019-05-30 07:31 | REP ---
CT PULMONARY ANGIOGRAM: WITH IV CONTRAST. HISTORY: DVT. Shortness of breath. COMPARISON STUDIES: No comparison chest CT. CONTRAST DOSE: 75 mL of Isovue [address] TECHNIQUE: Helical scanning is acquired and overlapping 1.5 mm and contiguous 3 mm axial images are reformatted. In addition, maximum intensity projection and multiplanar re-formation images are generated in sagittal and coronal imaging projections. CT PULMONARY ANGIOGRAPHIC FINDINGS: There is good opacification in the pulmonary arterial tree. No filling defect or vessel cutoff is seen to suggest pulmonary embolism. Thoracic aorta shows vascular calcification but no evidence of aneurysm or dissection. There is a [id number] hiatal hernia noted in the middle mediastinum. No hilar or mediastinal mass is observed. No evidence of adenopathy. No pleural or pericardial effusion is seen. Normal adrenal glands are noted bilaterally. Visualized upper abdominal structures are unremarkable. The lung chang show no evidence of infiltrate. No significant mass or nodule is seen. There are scattered tiny 1-2 mm nodules. There is some right apical linear scarring. There is a granulomatous calcification in the right upper lobe. No bony destructive lesion is seen. IMPRESSION: No CT evidence of pulmonary embolus. Scattered granulomatous changes. Large hiatal hernia. Otherwise, no active disease. Electronically Signed by Franklin Finley MD 05/30/2019 08:53 A
[2019-05-30] MEDS: hydroCHLOROthiazide 12.5 MG CAPSULE PO SCH (08:56)
[2019-05-30] MEDS: lisinopriL 10 MG TAB PO SCH (08:56)
[2019-05-30] MEDS: atenoloL 25 MG TAB PO SCH (08:56)
[2019-05-30] MEDS: PANTOPRAZOLE 40MG INJ (PROTONIX) (C9113) IV SCH ×2 (08:57→21:54)
[2019-05-30] MEDS ORDERED: PNEUMOCOCCAL VACCINE 0.5ML SYRINGE(90732) PNEUMOVAX 23 IM ONE (09:00)
[2019-05-30] MEDS ORDERED: POTASSIUM CHLORIDE 10 MEQ SR TABLET PO ONE (09:45)
--- NOTE | 2019-05-30 11:24 | REPVR ---
PROCEDURE INFORMATION: Exam: US Duplex Artery or Vein of the Abdominal and/or Reproductive Organs, Limited Exam date and time: 05/30/2019 10:45 AM Age: 73 years old Clinical indication: Condition or disease; Other: HTN TECHNIQUE: Imaging protocol: Real-time duplex ultrasound scan of the arterial or venous flow of the abdomen and/or reproductive organs, with color Doppler flow and spectral waveform analysis with image documentation. Exam focused on the region of clinical interest. Duplex images were received to evaluate vascular conditions. COMPARISON: No relevant prior studies available. FINDINGS: Right kidney: The right kidney measures 10.2 cm. Normal parenchymal echogenicity. A small area of hypoechogenicity within the central kidney on 1 image (7) is favored artifactual. No hydronephrosis. Right renal peak arterial velocity 110 cm/s. Renal-aortic ratio 0.98. Resistive indices range between 0.72-0.73. Left kidney: The left kidney measures 10.0 cm. Normal parenchymal echogenicity. No hydronephrosis. A 0.7 cm hyperechoic lesion is present within the superior kidney, possibly a small angiomyolipoma. Left renal peak arterial velocity 68.4 centimeters/seconds. Renal-aortic ratio 0.61. Resistive indices range from 0.76-0.78. IMPRESSION: 1. No evidence of renal arterial stenosis. Systolic velocities and renal-aortic ratios are within normal limits. 2. No hydronephrosis. Normal sonographic appearance of the kidneys. PROCEDURE INFORMATION: Exam: US Retroperitoneal Limited, Kidneys Exam date and time: 05/30/2019 10:45 AM Age: 73 years old Clinical indication: Condition or disease; Other: HTN TECHNIQUE: Imaging protocol: Real-time ultrasound of the retroperitoneum with image documentation. Examination was focused on the kidneys. COMPARISON: No relevant prior studies available. FINDINGS: Right kidney: The right kidney measures 10.2 cm. Normal parenchymal echogenicity. A small area of hypoechogenicity within the central kidney on 1 image (7) is favored artifactual. No hydronephrosis. Right renal peak arterial velocity 110 cm/s. Renal-aortic ratio 0.98. Resistive indices range between 0.72-0.73. Left kidney: The left kidney measures 10.0 cm. Normal parenchymal echogenicity. No hydronephrosis. A 0.7 cm hyperechoic lesion is present within the superior kidney, possibly a small angiomyolipoma. Left renal peak arterial velocity 68.4 centimeters/seconds. Renal-aortic ratio 0.61. Resistive indices range from 0.76-0.78. IMPRESSION: 1. No evidence of renal arterial stenosis. Systolic velocities and renal-aortic ratios are within normal limits. 2. No hydronephrosis. Normal sonographic appearance of the kidneys. Electronically signed by: Jerald Sullivan On 05/30/2019 11:23:56 AM
--- NOTE | 2019-05-30 16:26 | IPNPDOC ---
Subjective Date Seen The patient was seen on 05/30/19. Subjective Chief Complaint/HPI Patient seen in PCU. She reported that she felt fairly well. In fact, she was hungry, as she has been NPO since yesterday morning. She has worsening iron deficiency anemia, but hasn't had a discrete bleeding episode. In fact, she notes that she has had chronic constipation since as long as she can remember. I spoke with Dr. Fagan who is aware of the consult. He does not plan to scope her today, but will check his schedule and see when he can work her in; in the meantime,OK for full liquid diet. Constitutional: Denies: Chills, Fever ENT: Reports: Head Aches (mild) Cardiovascular: Denies: Chest Pain Gastrointestinal: Reports: Constipation; Denies: Nausea, Vomiting, Abdominal Pain, Diarrhea Neurological: Denies: Weakness Psych: Reports: Mood Normal Objective Physical Examination General Exam: Positive: Alert, Cooperative, No Acute Distress Eye Exam: Positive: Conjunctiva & lids normal; Negative: Sclera icteric ENT Exam: Positive: Mucous membr. moist/pink Chest Exam: Positive: Clear to auscultation, Normal air movement Heart Exam: Positive: Rate Normal Extremity Exam: Positive: Edema (just proximal to L AC there is erythema and sw elling) Skin Exam: Positive: Nl turgor and temperature; Negative: Rash Neuro Exam: Positive: Normal Speech Psych Exam: Positive: Mental status NL, Mood NL Assessment /Plan Problems (1) Iron deficiency anemia Problem Text: Transfused 1 unit PRBCs. No active bleeding, and denies symptoms. (2) Heme positive stool Status: Acute Problem Text: With no jamar bleeding, this suggests perhaps a slow, chronic loss. Discussed with general surgery, who will plan to scope her (but not today.) Full liquid diet. (3) Cephalic vein thrombosis, left Status: Acute Problem Text: This is from an IV where she just had an iron infusion. (4) Hypertension Status: Chronic Problem Text: Well-controlled in office. Higher than normal in the hospital, though by and large lower than when in the ED. Only symptom that she admits to is a mild headache (and she attributes that to being NPO for 24+ hours.) I am stopping IVFs, until general surgery wishes her to be NPO, as they may be contributing. (5) Superficial thrombophlebitis Status: Acute Problem Text: Sore and erythematous; from site of recent IV infusion. Plan/VTE VTE Prophylaxis Ordered?: Yes VS, I&O, 24H, Fishbone Vital Signs/I&O Vital Signs Date Time Temp Pulse Resp B/P (MAP) Pulse Ox O2 Delivery O2 Flow Rate FiO2 05/30/19 15:41 98.0 74 18 165/77 (106) 100 Room Air I&O- Last 24 Hours up to 6 AM 05/30/19 06:00 Intake Total 3365 ml Output Total 1650 ml Balance 1715 ml Laboratory Data 24H LABS Laboratory Tests 2 05/29/19 17:23: Reticulocyte # (auto) 98.1H, Percent Reticulocyte Count 3.7H, Reticulocyte Hemoglobin Equivalent 26.7, Iron Level 10L, Total Iron Binding Capacity 393, Transferrin % Saturation 2.5L, Ferritin 22 05/30/19 05:00: Nucleated Red Blood Cells % (auto) 0.0, Anion Gap 6L, Glomerular Filtration Rate > 60.0, Calcium Level 8.1L CBC/BMP Laboratory Tests 05/29/19 17:23 05/30/19 05:00 SUAD SOTOMAYOR DO May 30, 2019 16:26
[2019-05-30 17:11] LABS: HEMATOCRIT 28.9 % (36.0-47.0); HEMOGLOBIN 8.7 g/dl (12.0-15.5)
[2019-05-30] MEDS ORDERED: GOLYTELY SOLN 4000 ML BTL PO ONE (18:00)
--- NOTE | 2019-05-30 19:13 | CR.PDOC ---
General Surgery Consultation Date of Consultation 05/30/19 History and Physical CONSULT REPORT FOR: Hospitalist service REASON FOR CONSULTATION: Significant anemia HISTORY OF PRESENT ILLNESS: Patient is currently admitted to the hospital for significant anemia. She has a known and long-term history of iron deficiency anemia. She had a colonoscopy in for workup of her anemia. She had a positive colocolic test at that time. She was found to have nonbleeding internal hemorrhoids but otherwise a normal study. She has been taking oral iron therapy but persisted to be anemic this was decided to give her IV iron infusion therapy. She had one infused on . She actually came to the hospital because of swelling in her arm due to the iron infusion and in the emergency room she had laboratories sent that shows her hemoglobin was down to 6.6. Prior to this on May 11 she had a hemoglobin of 7.9. She denies any overt gastrointestinal bleeding. She denies a nausea or vomiting, passage of bloody stool. In the ER the tested her stool and was found to have positive fecal cold blood tests. I was asked to consider doing an inpatient colonoscopy for workup of her worsening anemia. PAST MEDICAL HISTORY: 1. Iron deficiency anemia 2. Hypertension PAST SURGICAL HISTORY: INCLUDES: 1. Colonoscopy in 2017. ALLERGIES: Please see below. FAMILY HISTORY: Denies any significant history for gastrointestinal malignancy, colon cancer. HOME MEDICATIONS: Please see below. REVIEW OF SYSTEMS: GENERAL: Patient denies any abnormal weight loss. HEENT: Denies blurred vision and double vision. Denies ear symptoms. Denies hoarseness. NECK: Denies any neck pain CARDIOVASCULAR: Denies chest pain and palpitations. MUSCULOSKELETAL: Denies arthralgias, back pain and thrombophlebitis. SKIN: Denies rash. NEUROLOGIC: Denies headache, stroke and transient ischemic attack. PSYCHIATRIC: Denies anxiety and depression. ENDOCRINE: Denies thyroid disease. HEMATOLOGY/ONCOLOGY: Denies bleeding or clotting disorder. She is not on any anticoagulation and even aspirin HEART: Denies any chest pains, palpitations, paroxysmal dyspnea, orthopnea. PULMONARY: Denies chronic cough, dyspnea and wheezing. GASTROINTESTINAL: Denies rectal bleeding, family history of colon cancer, constipation, diarrhea, dysphagia, heartburn and jaundice. GENITOURINARY: Denies dysuria, frequency, hematuria and nocturia. ENDOCRINE: Denies polydipsia, polyphagia, polyuria, heat or cold intolerance. INFECTIOUS: Denies any recent upper respiratory tract infection, UTI, need for use of antibiotics. NUTRITION: Reports good appetite. PHYSICAL EXAMINATION: VITALS SIGNS: Please see below. GENERAL APPEARANCE: Patient appears her stated age, looks very comfortable does not look ill. SKIN: Warm and dry. HEENT: Normocephalic, atraumatic. mild pale palpebral conjunctiva, anicteric sclerae. Lips and mucosa appear moist. NECK: Supple, no thyromegaly. No obvious jugular venous distention. LUNGS: Clear to auscultation bilaterally. No wheezing appreciated. HEART: No chest wall abnormalities. Regular rate and rhythm with no murmurs appreciated. ABDOMEN: Abdomen is slightly rounded soft, and nondistended. With no obvious herniations. No masses on palpation. Nontender on palpation.. EXTREMITIES: Extremities have no deformities. No edema identified ANCILLARIES: . LABORATORY DATA: Please see below. IMAGING STUDIES: . IMPRESSION AND PLAN: Severe anemia I don't anticipate any acute hemorrhagic event given her history likewise her degree of tolerance of this significant anemia. High likelihood of some form of chronic blood loss. She does not really complain of any symptoms pointing to any particular etiology nor of any side effects of the anemia. Her last colonoscopy was in 2017 which I reviewed which was essentially normal. She so far has received 1 unit of blood. She so some trailing of the hemoglobin and hematocrit but no acute drop signify that there is active bleeding. Patient will be scheduled for upper endoscopy and colonoscopy Vital Signs Vital Signs Date Time Temp Pulse Resp B/P (MAP) Pulse Ox O2 Delivery O2 Flow Rate FiO2 05/30/19 17:30 148/80 (102) 05/30/19 15:41 98.0 74 18 100 Room Air I&Os I&O- Last 24 Hours up to 6 AM 05/30/19 06:00 Intake Total 3365 ml Output Total 1650 ml Balance 1715 ml Laboratory Data Labs 24H Laboratory Tests 2 05/30/19 05:00: Nucleated Red Blood Cells % (auto) 0.0, Anion Gap 6L, Glomerular Filtration Rate > 60.0, Calcium Level 8.1L CBC/BMP Laboratory Tests 05/30/19 05:00 05/30/19 16:47 Home Medications Scheduled Atenolol (Atenolol) 25 Mg Tablet, 25 MG PO DAILY, (Reported) Cyanocobalamin (Vitamin B-12) (Vitamin B-12) 100 Mcg Tablet, 100 MCG PO DAILY, (Reported) Hydrochlorothiazide (Hydrochlorothiazide) 12.5 Mg Cap, 12.5 MG PO DAILY, (Reported) Lisinopril (Lisinopril) 30 Mg Tab, 30 MG PO DAILY, (Reported) Multivitamin (Multivitamins) 1 Each Capsule, 1 CAP PO DAILY, (Reported) [place]-3 Fatty Acids/Fish Oil ([place] 3 1,000 mg Softgel) 1 Cap Cap, 1,000 CAP PO DAILY, (Reported) Pantoprazole Sodium (Pantoprazole Sodium) 40 Mg Tablet.dr, 40 MG PO DAILY Allergies Coded Allergies: Penicillins (Verified Allergy, Severe, DIFFICULTY BREATHING AND SWELLING, 05/24/19) MAXIM MCGILL MD May 30, 2019 19:13
[2019-05-31] VITALS: BP 160/90
[2019-05-31 04:00] VITALS: BP 172/82
[2019-05-31 05:02] LABS: HEMATOCRIT 25.4 % (36.0-47.0); HEMOGLOBIN 7.8 g/dl (12.0-15.5); MEAN CORPUSCULAR HEMOGLOBIN 25.3 pg (27.0-33.0); MEAN CORPUSCULAR HGB CONC 30.7 g/dl (32.0-36.5); MEAN CORPUSCULAR VOLUME 82.5 fl (80.0-96.0); PLATELET COUNT, AUTOMATED 304 10^3/uL (150-450); RED BLOOD COUNT 3.08 10^6/uL (4.00-5.40); WHITE BLOOD COUNT 4.3 10^3/uL (4.0-10.0)
[2019-05-31 08:00] VITALS: BP 164/86
[2019-05-31] MEDS ORDERED: PNEUMOCOCCAL VACCINE 0.5ML SYRINGE(90732) PNEUMOVAX 23 IM ONE (09:00)
[2019-05-31] MEDS: PANTOPRAZOLE 40MG INJ (PROTONIX) (C9113) IV SCH (09:45)
[2019-05-31] MEDS ORDERED: IRON DEXTRAN 50 MG/ML IV ONE (10:00)
--- NOTE | 2019-05-31 10:05 | IPNPDOC ---
Subjective Date Seen The patient was seen on 05/31/19. Subjective Chief Complaint/HPI Mrs Machado this morning is feeling pretty good, she is eager to go home. She reports that the swelling in his LUE has improved significantly. She is going for a colonoscopy later today. scheduled for Iron infusion tomorrow. General: Denies: Fatigue Constitutional: Denies: Chills, Fever ENT: Denies: Head Aches Pulmonary: Denies: Dyspnea, Cough Cardiovascular: Denies: Chest Pain, Palpitations Gastrointestinal: Reports: Diarrhea; Denies: Nausea, Vomiting Musculoskeletal: Denies: Neck Pain Neurological: Denies: Weakness Psych: Reports: Mood Normal; Denies: Anxiety, Depression Objective Physical Examination General Exam: Positive: Alert, Cooperative, No Acute Distress ENT Exam: Positive: Mucous membr. moist/pink Chest Exam: Positive: Clear to auscultation, Normal air movement Heart Exam: Positive: Rate Normal Extremity Exam: Positive: Swelling (mild swelling on the antebubital region on the LUE, improved. ); Negative: Edema Skin Exam: Positive: Nl turgor and temperature; Negative: Rash Neuro Exam: Positive: Normal Speech Psych Exam: Positive: Mental status NL, Mood NL Assessment /Plan Problems (1) Iron deficiency anemia Problem Text: 05/31 Pt has received 1 unit pRBCs during this admission. She reports no signs of active bleeding, she had her first iron infusion last week, had declined colonoscopy, agreeable now and scheduled for later today. She is scheduled for her second iron infusion tomorrow, will have this done later today after her colonoscopy, the order has been placed. Her Hgb this morning is 7.8, she was 6.5 on admission. 05/30 Transfused 1 unit PRBCs. No active bleeding, and denies symptoms. (2) Heme positive stool Status: Acute Problem Text: 05/31 Plan for colonoscopy later today. 05/30 With no jamar bleeding, this suggests perhaps a slow, chronic loss. Discussed with general surgery, who will plan to scope her (but not today.) Full liquid diet. (3) Cephalic vein thrombosis, left Status: Acute Problem Text: This is from an IV where she just had an iron infusion. (4) Hypertension Status: Chronic Problem Text: Well-controlled in office. Higher than normal in the hospital, though by and large lower than when in the ED. Only symptom that she admits to is a mild headache (and she attributes that to being NPO for 24+ hours.) I am stopping IVFs, until general surgery wishes her to be NPO, as they may be contributing. (5) Superficial thrombophlebitis Status: Acute Problem Text: Sore and erythematous; from site of recent IV infusion. Plan/VTE VTE Prophylaxis Ordered?: Yes VS, I&O, 24H, Fishbone Vital Signs/I&O Vital Signs Date Time Temp Pulse Resp B/P (MAP) Pulse Ox O2 Delivery O2 Flow Rate FiO2 05/31/19 08:00 97.5 92 16 164/86 (112) 98 Room Air I&O- Last 24 Hours up to 6 AM 05/31/19 06:00 Intake Total 300 ml Output Total 2000 ml Balance -1700 ml Laboratory Data 24H LABS Laboratory Tests 2 05/31/19 04:45: Nucleated Red Blood Cells % (auto) 0.0 CBC/BMP Laboratory Tests 05/30/19 16:47 05/31/19 04:45 TESSA CARDENAS PA-C May 31, 2019 10:04
--- NOTE | 2019-05-31 11:11 | IPNPDOC ---
Text Note Date of Service The patient was seen on 05/31/19. NOTE Patien for UGI endoscopy and colonoscopy today. Denies any abdominal discomfort, shortness of breath, chest pain, light headedness. She tolerated the prep last night. VS stable. On examination, she looks comfortable lung sounds are clear to ausculation She has a regular heart rate and rhythm abdomen is flat, soft, nondistended, nontender Impression anemia probably from chronic blood loss She is for upper GI endoscopy and colonoscopy today. Further recommendations de pending on procedure findings. VS,Fishbone, I+O VS, Fishbone, I+O Laboratory Tests 05/30/19 16:47 05/31/19 04:45 Vital Signs Date Time Temp Pulse Resp B/P (MAP) Pulse Ox O2 Delivery O2 Flow Rate FiO2 05/31/19 08:00 97.5 92 16 164/86 (112) 98 Room Air I&O- Last 24 Hours up to 6 AM 05/31/19 06:00 Intake Total 300 ml Output Total 2000 ml Balance -1700 ml MAXIM MCGILL MD May 31, 2019 11:11
[2019-05-31] MEDS ORDERED: CETACAINE SPRAY 5GM As Ordered ONE (11:26)
[2019-05-31] MEDS ORDERED: fentaNYL 100 MCG/2 ML INJECTION (J3010) As Ordered ONE (11:52)
[2019-05-31] MEDS ORDERED: propofoL 500 MG/50 ML VIAL As Ordered ONE (11:52)
[2019-05-31] MEDS ORDERED: ONDANSETRON 4MG/2ML VIAL (J2405) As Ordered ONE (11:52)
[2019-05-31] MEDS ORDERED: LIDOCAINE 2% INJ 100 MG/5 ML SDV (FOR ANES.) As Ordered ONE (11:52)
[2019-05-31] MEDS ORDERED: LABETALOL HCL 100 MG/20 ML VIAL As Ordered ONE (11:55)
--- NOTE | 2019-05-31 12:57 | ROOR ---
Patient Name: Mirela Machado Procedure Date: 05/31/2019 10:46 AM Date of : 1945 Age: 73 Gender: Female Note Status: Finalized Procedure: Upper GI endoscopy Indications: Iron deficiency anemia secondary to chronic blood loss, Iron deficiency anemia Providers: Rich Fagan MD Referring MD: 2. Inpatient 2. Inpatient Requesting Provider: Medicines: Monitored Anesthesia Care Complications: No immediate complications. Procedure: Pre-Anesthesia Assessment: - Prior to the procedure, a History and Physical was performed, and patient medications and allergies were reviewed. The patient is competent. The risks and benefits of the procedure and the sedation options and risks were discussed with the patient. All questions were answered and informed consent was obtained. Patient identification and proposed procedure were verified by the physician, the nurse and the saddle and side wire stitcher in the procedure room. Mental Status Examination: alert and oriented. Airway Examination: normal oropharyngeal airway and neck mobility. Respiratory Examination: clear to auscultation. CV Examination: normal. Prophylactic Antibiotics: The patient does not require prophylactic antibiotics. Prior Anticoagulants: The patient has taken no previous anticoagulant or antiplatelet agents. ASA Grade Assessment: III - A patient with severe systemic disease. After reviewing the risks and benefits, the patient was deemed in satisfactory condition to undergo the procedure. The anesthesia plan was to use monitored anesthesia care (MAC). Immediately prior to administration of medications, the patient was re-assessed for adequacy to receive sedatives. The heart rate, respiratory rate, oxygen saturations, blood pressure, adequacy of pulmonary ventilation, and response to care were monitored throughout the procedure. The physical status of the patient was re-assessed after the procedure. The Endoscope was introduced through the mouth, and advanced to the third part of duodenum. The upper GI endoscopy was accomplished without difficulty. The patient tolerated the procedure well. Findings: Circumferential salmon-colored mucosa was present at 18 cm. The maximum longitudinal extent of these esophageal mucosal changes was 3 cm in length. Biopsies were taken with a cold forceps for histology. Estimated blood loss was minimal. There were esophageal mucosal changes suspicious for short-segment Bray's esophagus present in the lower third of the esophagus. The maximum longitudinal extent of these mucosal changes was 2 cm in length. A medium-sized hiatal hernia was present. Segmental moderate mucosal changes characterized by congestion and granularity were found in the gastric fundus. This was biopsied with a cold forceps for histology. The gastric antrum was normal. The ampulla, first portion of the duodenum and second portion of the duodenum were normal. Impression: - Klemme-colored mucosa suspicious for short-segment Bray's esophagus. Biopsied. - Esophageal mucosal changes suspicious for short-segment Bray's esophagus. - Medium-sized hiatal hernia. - Congested and granular mucosa in the gastric fundus. Biopsied. - Normal antrum. - Normal ampulla, first portion of the duodenum and second portion of the duodenum. Recommendation: - Await pathology results. - [facility]. - Use Protonix (pantoprazole) 40 mg PO daily today. Attending Participation: I personally performed the entire procedure. Rich Fagan MD Rich Fagan MD 05/31/2019 12:57:04 PM Electronically signed by Rich Fagan MD Number of Addenda: 0 Note Initiated On: 05/31/2019 10:46 AM Estimated Blood Loss: Estimated blood loss was minimal.
--- NOTE | 2019-05-31 13:03 | ROOR ---
Patient Name: Mirela Machado Procedure Date: 05/31/2019 10:39 AM Date of : 1945 Age: 73 Gender: Female Note Status: Finalized Procedure: Colonoscopy Indications: Iron deficiency anemia secondary to chronic blood loss, Iron deficiency anemia Providers: Rich Fagan MD Referring MD: 2. Inpatient 2. Inpatient Requesting Provider: Medicines: Monitored Anesthesia Care Complications: No immediate complications. Procedure: Pre-Anesthesia Assessment: - Prior to the procedure, a History and Physical was performed, and patient medications and allergies were reviewed. The patient is competent. The risks and benefits of the procedure and the sedation options and risks were discussed with the patient. All questions were answered and informed consent was obtained. Patient identification and proposed procedure were verified by the physician, the nurse and the marketer in the procedure room. Mental Status Examination: alert and oriented. Airway Examination: normal oropharyngeal airway and neck mobility. Respiratory Examination: clear to auscultation. CV Examination: normal. Prophylactic Antibiotics: The patient does not require prophylactic antibiotics. Prior Anticoagulants: The patient has taken no previous anticoagulant or antiplatelet agents. ASA Grade Assessment: III - A patient with severe systemic disease. After reviewing the risks and benefits, the patient was deemed in satisfactory condition to undergo the procedure. The anesthesia plan was to use monitored anesthesia care (MAC). Immediately prior to administration of medications, the patient was re-assessed for adequacy to receive sedatives. The heart rate, respiratory rate, oxygen saturations, blood pressure, adequacy of pulmonary ventilation, and response to care were monitored throughout the procedure. The physical status of the patient was re-assessed after the procedure. The Colonoscope was introduced through the anus and advanced to the cecum, identified by appendiceal orifice and ileocecal valve. Findings: The perianal and digital rectal examinations were normal. The colon (entire examined portion) appeared normal. There was a medium-sized lipoma, 2 mm in diameter, in the rectum. just aboe one of the columns of hemorrhoids, there seems to be a prominent submucosal soft tissue lump maybe a lipoma. biopsied/photodocumented Impression: - The entire examined colon is normal. - Medium-sized lipoma in the rectum. - No specimens collected. Recommendation: - [facility]. Attending Participation: I personally performed the entire procedure. Rich Fagan MD Rich Fagan MD 05/31/2019 1:03:03 PM Electronically signed by Rich Fagan MD Number of Addenda: 0 Note Initiated On: 05/31/2019 10:39 AM Estimated Blood Loss: Estimated blood loss: none.
[2019-05-31] MEDS ORDERED: fentaNYL 100 MCG/2 ML INJECTION (J3010) IV PRN (13:15)
[2019-05-31] MEDS ORDERED: ONDANSETRON 4MG/2ML VIAL (J2405) IV PRN (13:15)
[2019-05-31] MEDS ORDERED: LR 1,000 ML IV SCH (13:15)
[2019-05-31] MEDS ORDERED: METOCLOPRAMIDE INJ 10MG/2ML VIAL (J2765) IV PRN (13:15)
[2019-05-31 13:44] VITALS: BP 152/88
[2019-05-31] MEDS: lisinopriL 10 MG TAB PO SCH (13:44)
[2019-05-31] MEDS: atenoloL 25 MG TAB PO SCH (13:44)
[2019-05-31] MEDS: hydroCHLOROthiazide 12.5 MG CAPSULE PO SCH (13:44)
[2019-05-31 13:50] VITALS: BP 152/88
[2019-05-31] MEDS ORDERED: SLF 3 ML SYR IV PRN (14:45)
[2019-05-31 16:00] VITALS: BP 132/64
[2019-05-31] MEDS ORDERED: IRON SUCROSE 200 MG in NS 100 ML OVER 1 HR IV ONE (16:00)
[2019-05-31 17:28] LABS: HEMATOCRIT 27.1 % (36.0-47.0); HEMOGLOBIN 8.3 g/dl (12.0-15.5)
[2019-05-31] MEDS ORDERED: PANT40TA3 PO (18:37)
[2019-05-31] MEDS ORDERED: SLF 3 ML SYR IV SCH (22:00)
[2019-06-01] MEDS ORDERED: PANTOPRAZOLE 40MG TAB (PROTONIX) PO SCH (09:00)
--- NOTE | 2019-06-30 01:27 | DS.PDOC ---
Discharge Summary General Date of Admission May 29, 2019 at 16:39 Date of Discharge May 31, 2019 Primary Care Physician: NORA CARDENAS PA-C Attending Physician: SUAD SOTOMAYOR DO Specialist/Consultants Involve: MAXIM MCGILL MD Discharge Summary PROCEDURES PERFORMED DURING STAY: EGD, colonoscopy, iron infusion, blood transfusion ADMITTING DIAGNOSES: #GI bleed #Superficial thrombophlebitis of the median cubital vein and distal cephalic vein, secondary to iron infusion. #Resistant hypertension, patient is on 4 antihypertensive medication and continue to have high BP #Anemia secondary to iron deficiency anemia DISCHARGE DIAGNOSES: (1) Iron deficiency anemia (2) Heme positive stool (3) Cephalic vein thrombosis, left (4) Hypertension (5) Superficial thrombophlebitis COMPLICATIONS/CHIEF COMPLAINT: Anemia. HISTORY OF PRESENT ILLNESS: Patient is 73-year-old female with past medical history with a past medical history significant of iron deficiency anemia. Iron deficiency anemia, hypertension, presented sent to the emergency department left upper extremity pain and swelling following iron infusion on 05/25. Patient complained of left antecubital pain, redness, swelling, and that has progressed since the infusion. This was patient's first ever. This was patient's first ever iron infusion for iron deficiency anemia that was diagnosed 3 years ago. During the initial evaluation, it was discovered the patient had a hemoglobin of 6.6, with a hemoglobin of 23.1. Her previous measurements for hemoglobin and hematocrit were was 7.9 and 26.7 respectively. She was also fecal occult positive in the ED. She denied any blood red blood per rectum, denied abdominal pain, denies any ulcers, denied any epigastric pain, she did report a history of hemorrhoids. Patient's last colonoscopy was dated 12/02/2016, performed by Dr. Velázquez due to a positive Cologuard test. Results indicated nonbleeding internal hemorrhoids, with an otherwise normal examination. On direct and retroflex views. . She denied any weight loss, denies any dysphasia, denied any increase in abdominal pain, denied any history of heartburn. She reported shortness of breath and dizziness. A left upper extremity duplex ultrasound was positive for occlusive thrombosis in the median antecubital vein and distal cephalic vein just above the antecubital fossa. Hospital team was called for admission for left upper extremity occlusion and symptomatic anemia. HOSPITAL COURSE: Patient was admitted to the hospital. She had no acute bleed ing while here. She received a unit of packed red blood cells, which she tolerate well. She also received an iron infusion. She had an EGD, which showed hiatal hernia, congested and granular gastric mucosa, and Bray's esophagus. She also had a colonoscopy showing a medium sized rectal lipoma. After her procedures, she was feeling well and requested to be discharged home, which she was, to followup with her PCP in the outpatient setting. DISCHARGE MEDICATIONS: Please see below. ALLERGIES: Please see below. PHYSICAL EXAMINATION ON DISCHARGE: VITAL SIGNS: Please see below. GENERAL: elderly female in NAD HEENT: mucous membranes moist NECK: supple CARDIOVASCULAR EXAMINATION: regular rate and rhythm RESPIRATORY EXAMINATION: clear to auscultation bilat ABDOMINAL EXAMINATION: soft, nontender and nondistended EXTREMITIES: no edema SKIN: no rash NEUROLOGICAL EXAMINATION: no focal deficit PSYCHIATRIC EXAMINATION: appropriate mood and affect LABORATORY DATA: Please see below. IMAGING: CT angio showed: No CT evidence of pulmonary embolus. Scattered granulomatous changes. Large hiatal hernia. Otherwise, no active disease. Extremity US showed: There is occlusive thrombus in the median cubital vein and in the distal cephalic vein just above the antecubital fossa. Renal US showed: 1. No evidence of renal arterial stenosis. Systolic velocities and renal-aortic ratios are within normal limits. 2. No hydronephrosis. 3. Normal sonographic appearance of the kidneys. PROGNOSIS: good ACTIVITY: [As tolerated]. DIET: as tolerated DISCHARGE PLAN: discharge home DISPOSITION: 01 Home, Self-Care. DISCHARGE INSTRUCTIONS: Take all medications as prescribed. Call Nora Cardenas's office for a followup appointment. Contact the office for dizziness, blood in stool, dark tarry stool, abdominal pain, or any other concerns. ITEMS TO FOLLOWUP ON ON OUTPATIENT: 1. anemia 2. biopsy results DISCHARGE CONDITION: [Stable]. TIME SPENT ON DISCHARGE: Greater than 10 minutes. Discharge Medications Scheduled Atenolol (Atenolol) 25 Mg Tablet, 25 MG PO DAILY, (Reported) Cyanocobalamin (Vitamin B-12) (Vitamin B-12) 100 Mcg Tablet, 100 MCG PO DAILY, (Reported) Hydrochlorothiazide (Hydrochlorothiazide) 12.5 Mg Cap, 12.5 MG PO DAILY, (Reported) Lisinopril (Lisinopril) 30 Mg Tab, 30 MG PO DAILY, (Reported) Multivitamin (Multivitamins) 1 Each Capsule, 1 CAP PO DAILY, (Reported) [place]-3 Fatty Acids/Fish Oil ([place] 3 1,000 mg Softgel) 1 Cap Cap, 1,000 CAP PO DAILY, (Reported) Pantoprazole Sodium (Pantoprazole Sodium) 40 Mg Tablet.dr, 40 MG PO DAILY Allergies Coded Allergies: Penicillins (Verified Allergy, Severe, DIFFICULTY BREATHING AND SWELLING, 05/24/19) SUAD SOTOMAYOR DO Jun 30, 2019 01:27
== END 2019-05-31 19:21 | disposition home or self-care (01) | DRG 812 ==
LOC: M ED 11:52 → M ED INP 16:39 → CANRESERV 16:55 → ENRESERV 16:55 → ENRESERVTM 18:58 → ENRESERVDT 18:58 → M PCU 19:54
PROVIDERS: ADMIT Internal Medicine; ATTEND Family Medicine
PROC: 30233N1 Transfusion of Nonautologous Red Blood Cells into Peripheral Vein, Percutaneous Approach (ICD-10-PCS; principal; 2019-05-30)
PROC: 0DB78ZX Excision of Stomach, Pylorus, Via Natural or Artificial Opening Endoscopic, Diagnostic (ICD-10-PCS; 2019-05-31)
PROC: 0DBP8ZX Excision of Rectum, Via Natural or Artificial Opening Endoscopic, Diagnostic (ICD-10-PCS; 2019-05-31)
DX: D50.0 Iron deficiency anemia secondary to blood loss (chronic) (principal); I82.612 Acute embolism and thrombosis of superficial veins of left upper extremity; K92.2 Gastrointestinal hemorrhage, unspecified; I10 Essential (primary) hypertension; I80.8 Phlebitis and thrombophlebitis of other sites; Z79.899 Other long term (current) drug therapy; Z88.0 Allergy status to penicillin; K44.9 Diaphragmatic hernia without obstruction or gangrene; K22.70 Barrett's esophagus without dysplasia; K64.9 Unspecified hemorrhoids; T80.89XA Other complications following infusion, transfusion and therapeutic injection, initial encounter

== ENCOUNTER 2019-06-09 07:34 | Outpatient (CLI) | payer MEDICARE, OTHER ==
[~2019-06-09] VITALS: Ht 149.9 cm; Wt 56.8 kg
[~2019-06-09 07:34] MED LIST changes: +B-12100T2 PO; +MULTCAP PO; +PANT40TA3 PO
[2019-06-09 08:00] VITALS: BP 165/79
[2019-06-09] MEDS ORDERED: IRON SUCROSE 100 MG in NS 100 ML OVER 1 HR IV ONE (09:00)
[2019-06-09 09:45] VITALS: BP 151/69
[2019-06-09 10:10] VITALS: BP 164/76
== END 2019-06-09 10:10 | disposition home or self-care (01) ==
LOC: M INFU 07:34
PROVIDERS: ATTEND Physician Assistant Medical
DX: D50.9 Iron deficiency anemia, unspecified (principal); Z88.0 Allergy status to penicillin
CPT/HCPCS: 96365; J1756

== ENCOUNTER → 2019-06-11 | Outpatient (REF) | payer MEDICARE, OTHER ==
[2019-06-11 19:47] LABS: BLOOD UREA NITROGEN 17 MG/DL (7-18); CALCIUM LEVEL 8.4 MG/DL (8.8-10.2); CARBON DIOXIDE LEVEL 31 MEQ/L (21-32); CHLORIDE LEVEL 104 MEQ/L (98-107); CREATININE FOR GFR 0.97 MG/DL (0.55-1.30); GLOMERULAR FILTRATION RATE > 60.0 (>39); GLUCOSE, FASTING 103 MG/DL (70-100); POTASSIUM SERUM 3.8 MEQ/L (3.5-5.1); SODIUM LEVEL 138 MEQ/L (136-145)
[2019-06-11 19:52] LABS: HEMATOCRIT 25.7 % (36.0-47.0); HEMOGLOBIN 7.5 g/dl (12.0-15.5); MEAN CORPUSCULAR HEMOGLOBIN 25.6 pg (27.0-33.0); MEAN CORPUSCULAR HGB CONC 29.2 g/dl (32.0-36.5); MEAN CORPUSCULAR VOLUME 87.7 fl (80.0-96.0); PLATELET COUNT, AUTOMATED 432 10^3/uL (150-450); RED BLOOD COUNT 2.93 10^6/uL (4.00-5.40); WHITE BLOOD COUNT 6.7 10^3/uL (4.0-10.0)
== END ==
LOC: M SFHCADAM 15:14
PROVIDERS: ATTEND Physician Assistant Medical
DX: D50.9 Iron deficiency anemia, unspecified (principal)

== ENCOUNTER 2019-06-15 11:11 | Outpatient (CLI) | payer MEDICARE, OTHER ==
[~2019-06-15] VITALS: Ht 175.3 cm; Wt 56.8 kg
[2019-06-15 11:41] VITALS: BP 132/99
[2019-06-15] MEDS ORDERED: IRON SUCROSE 100 MG in NS 100 ML OVER 1 HR IV ONE (12:00)
[2019-06-15 12:30] VITALS: BP 155/70
[2019-06-15 13:31] VITALS: BP 141/66
== END 2019-06-15 13:30 | disposition home or self-care (01) ==
LOC: M INFU 11:11
PROVIDERS: ATTEND Physician Assistant Medical
DX: D50.9 Iron deficiency anemia, unspecified (principal); Z88.0 Allergy status to penicillin
CPT/HCPCS: 86850; 86900; 86901; 96365; J1756

== ENCOUNTER 2019-06-17 11:11 | Outpatient (CLI) | payer MEDICARE, OTHER ==
[~2019-06-17] VITALS: Ht 149.9 cm; Wt 56.8 kg
[2019-06-17 11:15] VITALS: BP 169/81
[2019-06-17 13:10] VITALS: BP 142/64
[2019-06-17 13:30] VITALS: BP 138/64
[2019-06-17 14:30] VITALS: BP 165/73
[2019-06-17 15:00] VITALS: BP 156/68
[2019-06-17 15:25] VITALS: BP 150/67
== END 2019-06-17 15:25 | disposition home or self-care (01) ==
LOC: M INFU 11:11
PROVIDERS: ATTEND Physician Assistant Medical
DX: D64.9 Anemia, unspecified (principal); Z88.0 Allergy status to penicillin
CPT/HCPCS: 36430; 86920; P9016

== ENCOUNTER → 2019-08-20 | Outpatient (REF) | payer MEDICARE, OTHER ==
[2019-08-20 13:10] LABS: HEMATOCRIT 34.2 % (36.0-47.0); HEMOGLOBIN 10.7 g/dl (12.0-15.5); MEAN CORPUSCULAR HEMOGLOBIN 25.7 pg (27.0-33.0); MEAN CORPUSCULAR HGB CONC 31.3 g/dl (32.0-36.5); MEAN CORPUSCULAR VOLUME 82.2 fl (80.0-96.0); PLATELET COUNT, AUTOMATED 283 10^3/uL (150-450); RED BLOOD COUNT 4.16 10^6/uL (4.00-5.40); WHITE BLOOD COUNT 4.5 10^3/uL (4.0-10.0)
[2019-08-20 13:31] LABS: PERCENT SATURATION 5.4 % (13.2-45.0)
== END ==
LOC: M SFHCADAM 08:26
PROVIDERS: ATTEND Physician Assistant
DX: D50.9 Iron deficiency anemia, unspecified (principal)

== ENCOUNTER → 2019-10-13 | Outpatient (CLI) | payer MEDICARE, OTHER ==
[~2019-10-13] MED LIST changes: +E-Z-PAQUE 96% w/w SUSP 176GM BTL As Ordered ONE; -LISI-672 PO; +LISI30TA4 PO
--- NOTE | 2019-10-14 19:09 | REP ---
Small bowel follow-through The procedure was performed under the direct supervision of Dr. Gallegos. The images were reviewed with Dr. Gallegos. The material mover film shows no organomegaly or pathological masses. The intestinal gas pattern is nonspecific. Liquid barium was administered and the barium column was followed through the small bowel to the level of the terminal ileum. Small bowel transit time is approximately 1 hour . Note is made of a large hiatal hernia. During fluoroscopy gentle palpation shows all loops are freely movable and pliable. There are no fixed or angulated loops. The small bowel mucosal pattern is normal in course and caliber. There is no transition to suggest a partial small bowel obstruction. Spot filming of the terminal ileum shows it to be unremarkable. Impression: There is a large hiatal hernia. Otherwise, Small bowel follow-through examination within normal limits. 0.6 minutes of fluoro time was utilized for this procedure. Electronically Signed by ANA MARIA Grande 10/13/2019 03:51 P Electronically Signed by Anuel Gallegos MD 10/14/2019 07:00 P
== END ==
LOC: M RAD 10:25
PROVIDERS: ATTEND Internal Medicine Gastroenterology
DX: D50.9 Iron deficiency anemia, unspecified (principal); K44.9 Diaphragmatic hernia without obstruction or gangrene

== ENCOUNTER → 2020-01-13 | Outpatient (REF) | payer MEDICARE, OTHER ==
[~2020-01-13] MED LIST changes: -E-Z-PAQUE 96% w/w SUSP 176GM BTL As Ordered ONE; +PANT40TA29 PO; -PANT40TA3 PO
[2020-01-13 13:42] LABS: BASO # 0.1 10^3/uL (0.0-0.2); EOS # 0.2 10^3/uL (0.0-0.5); EOS % 2.8 % (0.0-3.0); HEMATOCRIT 34.8 % (36.0-47.0); HEMOGLOBIN 10.9 g/dl (12.0-15.5); LYMPH # 1.2 10^3/uL (1.5-5.0); LYMPH % 20.2 % (24.0-44.0); MEAN CORPUSCULAR HEMOGLOBIN 25.7 pg (27.0-33.0); MEAN CORPUSCULAR HGB CONC 31.3 g/dl (32.0-36.5); MEAN CORPUSCULAR VOLUME 82.1 fl (80.0-96.0); MONO # 0.6 10^3/uL (0.0-0.8); MONO % 9.3 % (0.0-5.0); NEUTROPHILS % 66.4 % (36.0-66.0); PLATELET COUNT, AUTOMATED 325 10^3/uL (150-450); RED BLOOD COUNT 4.24 10^6/uL (4.00-5.40)
[2020-01-13 14:53] LABS: ALBUMIN 3.8 GM/DL (3.2-5.2); ALT/SGPT 14 U/L (12-78); BILIRUBIN,TOTAL 0.6 MG/DL (0.2-1.0); BLOOD UREA NITROGEN 9 MG/DL (7-18); CALCIUM LEVEL 9.5 MG/DL (8.8-10.2); CARBON DIOXIDE LEVEL 29 MEQ/L (21-32); CHLORIDE LEVEL 99 MEQ/L (98-107); CHOLESTEROL LEVEL 228 MG/DL (<200); CREATININE FOR GFR 0.64 MG/DL (0.55-1.30); FERRITIN 5 NG/ML (8-252); GLOMERULAR FILTRATION RATE > 60.0 (>39); GLUCOSE, FASTING 87 MG/DL (70-100); HDL CHOLESTEROL 88 MG/DL (>40); IRON (FE) 34 UG/DL (50-170); LDL CHOLESTEROL 128 MG/DL (<100); NON-HDL-C 140 MG/DL; PERCENT SATURATION 7.9 % (13.2-45.0); POTASSIUM SERUM 4.3 MEQ/L (3.5-5.1); SODIUM LEVEL 134 MEQ/L (136-145); TOTAL IRON BINDING CAPACITY 432 UG/DL (250-450); TOTAL PROTEIN 7.4 GM/DL (6.4-8.2); TRIGLYCERIDES LEVEL 61 MG/DL (<150)
== END ==
LOC: M SFHCADAM 12:55
PROVIDERS: ATTEND Physician Assistant Medical
DX: D50.8 Other iron deficiency anemias (principal); E66.01 Morbid (severe) obesity due to excess calories; Z79.899 Other long term (current) drug therapy

== ENCOUNTER 2020-07-05 15:57 | Outpatient (CLI) | payer MEDICARE, OTHER ==
[2020-07-05] VITALS (10 sets, daily range): BP systolic 118–149; BP diastolic 58–73
[2020-07-06] VITALS: BP 118/58
[2020-07-06 00:20] LABS: HEMATOCRIT 23.4 % (36.0-47.0); HEMOGLOBIN 7.1 g/dl (12.0-15.5); MEAN CORPUSCULAR HEMOGLOBIN 22.3 pg (27.0-33.0); MEAN CORPUSCULAR HGB CONC 30.3 g/dl (32.0-36.5); MEAN CORPUSCULAR VOLUME 73.6 fl (80.0-96.0); PLATELET COUNT, AUTOMATED 276 10^3/uL (150-450); RED BLOOD COUNT 3.18 10^6/uL (4.00-5.40); WHITE BLOOD COUNT 6.6 10^3/uL (4.0-10.0)
[2020-07-06 12:25] LABS: RSV AMPLIFICATION NEGATIVE (NEGATIVE)
== END 2020-07-06 00:08 | disposition home or self-care (01) ==
LOC: M OPCLI4PV 15:57 → M MSPAV 16:09 → M OPCLI4PV 07-06 00:08
PROVIDERS: ATTEND Family Medicine
DX: D50.9 Iron deficiency anemia, unspecified (principal); Z88.0 Allergy status to penicillin
CPT/HCPCS: 36415; 71046; 80053; 82607; 82728; 82746; 83036; 83550; 84439; 84443; 85027; 85046; 86850; 86900; 86901; 86920; 87631; 93005; P9016

== ENCOUNTER → 2020-07-05 | Outpatient (CLI) | payer MEDICARE, OTHER ==
--- NOTE | 2020-07-05 12:39 | REP ---
INDICATION: HYPERTENSIVE LEFT VENTRICULAR HYPERTROPHY, W/O HEART FAILURE COMPARISON: None. TECHNIQUE: PA/Lateral FINDINGS: Lungs: Clear, no infiltrate. Heart: Normal in size. Mediastinum: There is calcification and tortuosity of the thoracic aorta. The mediastinal silhouette is otherwise unremarkable. Pleural angles: Unremarkable.. Bones and soft tissues: There are mild diffuse degenerative changes of the spine without compression deformity. There is curvature of the thoracic spine convex to the right. IMPRESSION: No acute pulmonary disease. <Electronically signed by Anuel Gallegos > 07/05/20 [id number]
== END ==
LOC: M ADAMS 09:57
PROVIDERS: ATTEND Family Medicine
DX: R53.83 Other fatigue (principal); I11.9 Hypertensive heart disease without heart failure

== ENCOUNTER → 2020-07-05 | Outpatient (REF) | payer MEDICARE, OTHER ==
[2020-07-05 14:04] LABS: MEAN CORPUSCULAR HEMOGLOBIN 16.7 pg (27.0-33.0); MEAN CORPUSCULAR HGB CONC 26.7 g/dl (32.0-36.5); MEAN CORPUSCULAR VOLUME 62.8 fl (80.0-96.0); PLATELET COUNT, AUTOMATED 349 10^3/uL (150-450); RED BLOOD COUNT 2.39 10^6/uL (4.00-5.40); WHITE BLOOD COUNT 6.2 10^3/uL (4.0-10.0)
[2020-07-05 14:27] LABS: ALBUMIN 3.5 GM/DL (3.2-5.2); ALT/SGPT 13 U/L (12-78); BILIRUBIN,TOTAL 0.3 MG/DL (0.2-1.0); BLOOD UREA NITROGEN 13 MG/DL (7-18); CARBON DIOXIDE LEVEL 25 MEQ/L (21-32); CHLORIDE LEVEL 98 MEQ/L (98-107); CREATININE FOR GFR 0.88 MG/DL (0.55-1.30); FERRITIN < 3 NG/ML (8-252); FREE T4 1.13 NG/DL (0.76-1.46); GLOMERULAR FILTRATION RATE > 60.0 (>39); GLUCOSE, FASTING 110 MG/DL (70-100); IRON (FE) < 5 UG/DL (50-170); POTASSIUM SERUM 3.4 MEQ/L (3.5-5.1); SODIUM LEVEL 132 MEQ/L (136-145); TOTAL IRON BINDING CAPACITY 521 UG/DL (250-450); TOTAL PROTEIN 6.6 GM/DL (6.4-8.2)
[2020-07-05 14:30] LABS: VITAMIN B12 LEVEL 699 PG/ML (247-911)
[2020-07-05 14:31] LABS: FOLATE > 24.0 NG/ML (>5.4)
== END ==
LOC: M SFHCADAM 09:52
PROVIDERS: ATTEND Family Medicine
DX: R53.83 Other fatigue (principal); D50.9 Iron deficiency anemia, unspecified; Z79.899 Other long term (current) drug therapy

== ENCOUNTER → 2020-07-11 | Outpatient (CLI) | payer MEDICARE, OTHER ==
--- NOTE | 2020-07-17 10:59 | ECHO ---
DATE OF PROCEDURE: 07/11/2020 Age: 74 Gender: Female Height: 150 cm Weight: 58 kg REFERRING PHYSICIAN: GARRETT Pickering INDICATION: Left ventricular hypertrophy. MEASUREMENTS: 2D Measurements: Left ventricle diastole 4.7 cm Intraventricular septum 1.06 cm Posterior wall 1.02 cm Aortic root 2.7 cm Left atrium 2.6 cm Left atrial volume index 36 cm Inferior vena cava 2.0 cm with more than 50% respiratory variation Doppler Measurements: No aortic stenosis No aortic regurgitation Aortic valve velocity 150 cm/s LVOT velocity 91.0 cm/s Trace mitral regurgitation Mitral E velocity 103 cm/s Mitral A velocity 113 cm/s Mitral deceleration time 208 msec Mild tricuspid regurgitation Estimated right ventricular systolic pressure 31-36 mmHg Estimated right atrial pressure 5-10 mmHg Mild pulmonic regurgitation MITRAL ANNULAR TISSUE DOPPLER E prime lateral 7.2 cm/s DESCRIPTION: Rhythm was sinus. Image quality as fair. No pericardial effusion. This was a 2D, M-mode, color flow Doppler, and pulsed wave Doppler examination including mitral annular tissue Doppler. CONCLUSIONS: 1. Normal left ventricle internal dimensions and wall thickness. Normal regional LV wall motion and wall thickening. Normal LV systolic function. LVEF 70% by visual estimate. Normal LV diastolic function. 2. Moderate left atrial enlargement by left atrial volume index. 3. Mild aortic valve sclerosis of a 3-cuspid aortic valve. No aortic regurgitation. 4. Mild mitral annular calcification. Trace mitral regurgitation. 5. Suggestive of mild elevation of estimated right ventricle systolic pressure. 6. Otherwise normal appearing echocardiogram Doppler findings. MTDD
== END ==
LOC: M CARPUL 11:20
PROVIDERS: ATTEND Physician Assistant
DX: I11.9 Hypertensive heart disease without heart failure (principal)

== ENCOUNTER → 2020-07-13 | Outpatient (REF) | payer MEDICARE, OTHER ==
[2020-07-13 15:56] LABS: HEMATOCRIT 25.2 % (36.0-47.0); HEMOGLOBIN 7.2 g/dl (12.0-15.5)
== END ==
LOC: M SFHCADAM 11:33
PROVIDERS: ATTEND Physician Assistant Medical
DX: D50.9 Iron deficiency anemia, unspecified (principal)
CPT/HCPCS: 85014; 85018; G0463

== ENCOUNTER 2020-10-06 16:13 | Emergency (ER) | payer MEDICARE, OTHER ==
[~2020-10-06] VITALS: Ht 149.9 cm; Wt 75.5 kg
[~2020-10-06 16:13] MED LIST changes: +COLA100C5 PO; +COVI30VI IM; +MULT-90 PO
[2020-10-06] MEDS ORDERED: HYDR12.55 PO (16:30)
[2020-10-06 19:06] LABS: HEMATOCRIT 43.5 % (36.0-47.0); MEAN CORPUSCULAR HEMOGLOBIN 27.2 pg (27.0-33.0); MEAN CORPUSCULAR HGB CONC 32.2 g/dl (32.0-36.5); MEAN CORPUSCULAR VOLUME 84.6 fl (80.0-96.0); PLATELET COUNT, AUTOMATED 278 10^3/uL (150-450); RED BLOOD COUNT 5.14 10^6/uL (4.00-5.40); WHITE BLOOD COUNT 7.2 10^3/uL (4.0-10.0)
[2020-10-06] MEDS ORDERED: amLODIPine 5 MG TAB PO ONE (19:25)
[2020-10-06] MEDS ORDERED: GNP250TA9 PO (19:31)
[2020-10-06 19:38] VITALS: BP 214/146
[2020-10-06 19:42] LABS: CK-MB VALUE MASS < 1.0 NG/ML (<3.6); CPK CREATINE PHOSPHOKINASE 69 U/L (26-192); MB/CK RELATIVE INDEX 1.45 (< OR =4); TROPONIN I < 0.02 NG/ML (< 0.10)
[2020-10-06] MEDS ORDERED: NORV5TAB PO (21:10)
[2020-10-06 21:41] VITALS: BP 164/86
--- NOTE | 2020-10-07 08:54 | ECGEPIP ---
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
== END 2020-10-06 21:48 | disposition home or self-care (01) ==
LOC: M ED 16:13
DX: I16.0 Hypertensive urgency (principal); Z79.899 Other long term (current) drug therapy; Z88.0 Allergy status to penicillin; Z87.891 Personal history of nicotine dependence

== ENCOUNTER → 2020-12-22 | Outpatient (REF) | payer MEDICARE, OTHER ==
[~2020-12-22] MED LIST changes: +GNP250TA9 PO; +HYDR12.55 PO; +NORV5TAB PO
[2020-12-22 12:48] LABS: BASO % 0.8 % (0.0-1.0); EOS # 0.2 10^3/uL (0.0-0.5); EOS % 4.2 % (0.0-3.0); HEMOGLOBIN 12.1 g/dl (12.0-15.5); LYMPH % 24.7 % (24.0-44.0); MEAN CORPUSCULAR HEMOGLOBIN 31.6 pg (27.0-33.0); MEAN CORPUSCULAR HGB CONC 33.6 g/dl (32.0-36.5); MONO # 0.5 10^3/uL (0.0-0.8); MONO % 12.5 % (2.0-8.0); NEUTROPHILS # 2.2 10^3/uL (1.5-8.5); NEUTROPHILS % 57.5 % (36.0-66.0); PLATELET COUNT, AUTOMATED 216 10^3/uL (150-450); RED BLOOD COUNT 3.83 10^6/uL (4.00-5.40); WHITE BLOOD COUNT 3.8 10^3/uL (4.0-10.0)
[2020-12-22 13:30] LABS: ALBUMIN 3.7 GM/DL (3.2-5.2); ALT/SGPT 20 U/L (12-78); BILIRUBIN,TOTAL 0.5 MG/DL (0.2-1.0); BLOOD UREA NITROGEN 15 MG/DL (7-18); CALCIUM LEVEL 9.2 MG/DL (8.8-10.2); CARBON DIOXIDE LEVEL 28 MEQ/L (21-32); CHLORIDE LEVEL 99 MEQ/L (98-107); CREATININE FOR GFR 0.73 MG/DL (0.55-1.30); FERRITIN 170 NG/ML (8-252); GLOMERULAR FILTRATION RATE > 60.0 (>39); GLUCOSE, FASTING 91 MG/DL (70-100); IRON (FE) 93 UG/DL (50-170); PERCENT SATURATION 32.5 % (13.2-45.0); SODIUM LEVEL 135 MEQ/L (136-145); TOTAL IRON BINDING CAPACITY 286 UG/DL (250-450); TOTAL PROTEIN 6.6 GM/DL (6.4-8.2)
== END ==
LOC: M LAB REF 12:31
PROVIDERS: ATTEND Internal Medicine Medical Oncology
DX: D50.9 Iron deficiency anemia, unspecified (principal)

== ENCOUNTER → 2021-01-18 | Outpatient (REF) | payer MEDICARE, OTHER | LOC: M SFHCADAM 13:50 | PROVIDERS: ATTEND Physician Assistant Medical | DX: L29.0 Pruritus ani (principal); Z79.899 Other long term (current) drug therapy ==

== ENCOUNTER → 2021-08-02 | Outpatient (REF) | payer MEDICARE, OTHER ==
[2021-08-02 16:58] LABS: HEMATOCRIT 39.3 % (36.0-47.0); HEMOGLOBIN 13.5 g/dl (12.0-15.5); MEAN CORPUSCULAR HEMOGLOBIN 32.2 pg (27.0-33.0); MEAN CORPUSCULAR HGB CONC 34.4 g/dl (32.0-36.5); MEAN CORPUSCULAR VOLUME 93.8 fl (80.0-96.0); PLATELET COUNT, AUTOMATED 249 10^3/uL (150-450); RED BLOOD COUNT 4.19 10^6/uL (4.00-5.40); WHITE BLOOD COUNT 7.2 10^3/uL (4.0-10.0)
== END ==
LOC: M SFHCADAM 13:51
PROVIDERS: ATTEND Physician Assistant Medical
DX: K22.719 Barrett's esophagus with dysplasia, unspecified (principal); I10 Essential (primary) hypertension

== ENCOUNTER 2021-08-28 09:29 | Emergency (ER) | payer MEDICARE, OTHER ==
[~2021-08-28] VITALS: Ht 149.9 cm; Wt 59.2 kg
[2021-08-28] MEDS ORDERED: CIPR500T39 (10:00)
[2021-08-28] MEDS ORDERED: NEUR100C PO (12:00)
[2021-08-28] MEDS ORDERED: VALT1TAB PO (12:00)
[2021-08-28 12:09] VITALS: BP 160/90
[2021-08-28 12:45] LABS: ALBUMIN 3.9 GM/DL (3.2-5.2); ALT/SGPT 24 U/L (12-78); BILIRUBIN,DIRECT 0.1 MG/DL (0.0-0.2); BILIRUBIN,TOTAL 0.4 MG/DL (0.2-1.0); BLOOD UREA NITROGEN 11 MG/DL (7-18); CALCIUM LEVEL 9.8 MG/DL (8.8-10.2); CARBON DIOXIDE LEVEL 28 MEQ/L (21-32); CHLORIDE LEVEL 102 MEQ/L (98-107); GLOMERULAR FILTRATION RATE > 60.0 (>39); GLUCOSE, FASTING 99 MG/DL (70-100); POTASSIUM SERUM 4.1 MEQ/L (3.5-5.1); SODIUM LEVEL 137 MEQ/L (136-145); TOTAL PROTEIN 7.3 GM/DL (6.4-8.2)
== END 2021-08-28 12:42 | disposition home or self-care (01) ==
LOC: M ED 09:29
DX: B02.9 Zoster without complications (principal); I10 Essential (primary) hypertension; E61.1 Iron deficiency; G43.909 Migraine, unspecified, not intractable, without status migrainosus; M81.0 Age-related osteoporosis without current pathological fracture; Z82.49 Family history of ischemic heart disease and other diseases of the circulatory system; Z83.3 Family history of diabetes mellitus; Z86.718 Personal history of other venous thrombosis and embolism; Z87.09 Personal history of other diseases of the respiratory system; Z87.440 Personal history of urinary (tract) infections; Z88.0 Allergy status to penicillin; Z79.899 Other long term (current) drug therapy

== ENCOUNTER → 2021-09-24 | Outpatient (CLI) | payer MEDICARE, OTHER ==
[~2021-09-24] MED LIST changes: +CIPR500T39; +DOCU-153 PO; +NEUR100C PO; +VALT1TAB PO
[2021-09-24 13:51] LABS: BASO # 0.1 10^3/uL (0.0-0.2); BASO % 1.3 % (0.0-1.0); EOS # 0.3 10^3/uL (0.0-0.5); EOS % 5.8 % (0.0-3.0); HEMATOCRIT 41.5 % (36.0-47.0); HEMOGLOBIN 13.9 g/dl (12.0-15.5); LYMPH # 1.2 10^3/uL (1.5-5.0); LYMPH % 27.4 % (24.0-44.0); MEAN CORPUSCULAR HEMOGLOBIN 32.6 pg (27.0-33.0); MEAN CORPUSCULAR HGB CONC 33.5 g/dl (32.0-36.5); MEAN CORPUSCULAR VOLUME 97.4 fl (80.0-96.0); MONO # 0.5 10^3/uL (0.0-0.8); MONO % 11.5 % (2.0-8.0); NEUTROPHILS # 2.4 10^3/uL (1.5-8.5); NEUTROPHILS % 53.8 % (36.0-66.0); PLATELET COUNT, AUTOMATED 228 10^3/uL (150-450); RED BLOOD COUNT 4.26 10^6/uL (4.00-5.40); WHITE BLOOD COUNT 4.5 10^3/uL (4.0-10.0)
[2021-09-24 14:25] LABS: ALBUMIN 3.7 GM/DL (3.2-5.2); ALT/SGPT 14 U/L (12-78); BILIRUBIN,TOTAL 0.4 MG/DL (0.2-1.0); BLOOD UREA NITROGEN 12 MG/DL (7-18); CALCIUM LEVEL 9.4 MG/DL (8.8-10.2); CARBON DIOXIDE LEVEL 32 MEQ/L (21-32); CHLORIDE LEVEL 103 MEQ/L (98-107); CREATININE FOR GFR 0.65 MG/DL (0.55-1.30); FERRITIN 21 NG/ML (8-252); GLOMERULAR FILTRATION RATE > 60.0 (>39); GLUCOSE, FASTING 101 MG/DL (70-100); IRON (FE) 78 UG/DL (50-170); PERCENT SATURATION 22.3 % (13.2-45.0); SODIUM LEVEL 139 MEQ/L (136-145); TOTAL IRON BINDING CAPACITY 350 UG/DL (250-450); VITAMIN B12 LEVEL 672 PG/ML
== END ==
LOC: M ADAMS 10:51
PROVIDERS: ATTEND Internal Medicine Medical Oncology
DX: D50.9 Iron deficiency anemia, unspecified (principal)

== ENCOUNTER → 2022-01-25 | Outpatient (REF) | payer MEDICARE, OTHER ==
[2022-01-25 16:54] LABS: BASO # 0.1 10^3/uL (0.0-0.2); EOS # 0.1 10^3/uL (0.0-0.5); EOS % 2.4 % (0.0-3.0); HEMATOCRIT 38.6 % (36.0-47.0); HEMOGLOBIN 12.8 g/dl (12.0-15.5); LYMPH # 1.1 10^3/uL (1.5-5.0); LYMPH % 19.5 % (24.0-44.0); MEAN CORPUSCULAR HEMOGLOBIN 32.4 pg (27.0-33.0); MEAN CORPUSCULAR HGB CONC 33.2 g/dl (32.0-36.5); MEAN CORPUSCULAR VOLUME 97.7 fl (80.0-96.0); MONO # 0.7 10^3/uL (0.0-0.8); MONO % 12.2 % (2.0-8.0); NEUTROPHILS # 3.7 10^3/uL (1.5-8.5); NEUTROPHILS % 64.6 % (36.0-66.0); PLATELET COUNT, AUTOMATED 273 10^3/uL (150-450); RED BLOOD COUNT 3.95 10^6/uL (4.00-5.40); WHITE BLOOD COUNT 5.7 10^3/uL (4.0-10.0)
[2022-01-25 17:49] LABS: ALBUMIN 3.7 GM/DL (3.2-5.2); ALT/SGPT 15 U/L (12-78); BILIRUBIN,TOTAL 0.4 MG/DL (0.2-1.0); BLOOD UREA NITROGEN 20 MG/DL (7-18); CALCIUM LEVEL 9.3 MG/DL (8.8-10.2); CARBON DIOXIDE LEVEL 28 MEQ/L (21-32); CHLORIDE LEVEL 101 MEQ/L (98-107); CHOLESTEROL LEVEL 243 MG/DL (<200); CHOLESTEROL RISK RATIO 3.115 (<5); CREATININE FOR GFR 0.84 MG/DL (0.55-1.30); GLOMERULAR FILTRATION RATE > 60.0 (>39); GLUCOSE, FASTING 103 MG/DL (70-100); HDL CHOLESTEROL 78 MG/DL (>40); LDL CHOLESTEROL 134 MG/DL (<100); NON-HDL-C 165 MG/DL; POTASSIUM SERUM 5.2 MEQ/L (3.5-5.1); SODIUM LEVEL 136 MEQ/L (136-145); TOTAL PROTEIN 6.8 GM/DL (6.4-8.2); TRIGLYCERIDES LEVEL 155 MG/DL (<150)
[2022-01-25 18:02] LABS: MALB URINE SIEMENS 6.2 MG/L; MAU/CREAT RATIO 21.3 MCG/MG (0.0-30.0)
[2022-01-25 19:30] LABS: TOTAL 25(OH) VITAMIN D 33.7 NG/ML (30.0-100.0)
== END ==
LOC: M SFHCADAM 13:40
PROVIDERS: ATTEND Physician Assistant Medical
DX: D50.9 Iron deficiency anemia, unspecified (principal); K22.719 Barrett's esophagus with dysplasia, unspecified; I11.9 Hypertensive heart disease without heart failure; Z79.899 Other long term (current) drug therapy

== ENCOUNTER → 2022-03-15 | Outpatient (CLI) | payer MEDICARE, OTHER ==
[2022-03-15 17:22] LABS: BASO # 0.1 10^3/uL (0.0-0.2); BASO % 0.8 % (0.0-1.0); EOS # 0.2 10^3/uL (0.0-0.5); EOS % 2.3 % (0.0-3.0); HEMATOCRIT 41.3 % (36.0-47.0); HEMOGLOBIN 13.8 g/dl (12.0-15.5); LYMPH # 1.8 10^3/uL (1.5-5.0); LYMPH % 22.6 % (24.0-44.0); MEAN CORPUSCULAR HGB CONC 33.4 g/dl (32.0-36.5); MEAN CORPUSCULAR VOLUME 98.8 fl (80.0-96.0); MONO # 0.6 10^3/uL (0.0-0.8); MONO % 8.2 % (2.0-8.0); NEUTROPHILS # 5.1 10^3/uL (1.5-8.5); PLATELET COUNT, AUTOMATED 251 10^3/uL (150-450); RED BLOOD COUNT 4.18 10^6/uL (4.00-5.40); WHITE BLOOD COUNT 7.8 10^3/uL (4.0-10.0)
[2022-03-15 17:59] LABS: ALT/SGPT 21 U/L (12-78); BILIRUBIN,TOTAL 0.5 MG/DL (0.2-1.0); BLOOD UREA NITROGEN 18 MG/DL (7-18); CALCIUM LEVEL 9.5 MG/DL (8.8-10.2); CARBON DIOXIDE LEVEL 29 MEQ/L (21-32); CHLORIDE LEVEL 101 MEQ/L (98-107); CREATININE FOR GFR 0.85 MG/DL (0.55-1.30); FERRITIN 90 NG/ML (8-252); GLOMERULAR FILTRATION RATE > 60.0 (>39); GLUCOSE, FASTING 94 MG/DL (70-100); IRON (FE) 93 UG/DL (50-170); POTASSIUM SERUM 4.5 MEQ/L (3.5-5.1); SODIUM LEVEL 138 MEQ/L (136-145); TOTAL PROTEIN 7.4 GM/DL (6.4-8.2)
== END ==
LOC: M LABDRWAD 14:34
PROVIDERS: ATTEND Nurse Practitioner
DX: D50.9 Iron deficiency anemia, unspecified (principal)

== ENCOUNTER → 2022-07-29 | Outpatient (CLI) | payer MEDICARE, OTHER ==
[2022-07-29 17:02] LABS: BASO # 0.1 10^3/uL (0.0-0.2); BASO % 1.2 % (0.0-1.0); EOS # 0.3 10^3/uL (0.0-0.5); EOS % 4.2 % (0.0-3.0); HEMATOCRIT 39.4 % (36.0-47.0); HEMOGLOBIN 13.2 g/dl (12.0-15.5); LYMPH # 1.3 10^3/uL (1.5-5.0); LYMPH % 16.8 % (24.0-44.0); MEAN CORPUSCULAR HEMOGLOBIN 31.5 pg (27.0-33.0); MEAN CORPUSCULAR HGB CONC 33.5 g/dl (32.0-36.5); MONO # 0.6 10^3/uL (0.0-0.8); NEUTROPHILS # 5.3 10^3/uL (1.5-8.5); NEUTROPHILS % 69.4 % (36.0-66.0); PLATELET COUNT, AUTOMATED 307 10^3/uL (150-450); RED BLOOD COUNT 4.19 10^6/uL (4.00-5.40); WHITE BLOOD COUNT 7.6 10^3/uL (4.0-10.0)
[2022-07-29 17:19] LABS: IRON (FE) 73 UG/DL (50-170)
[2022-07-29 17:22] LABS: ALBUMIN 3.7 G/DL (3.2-5.2); ALKALINE PHOSPHATASE 68 U/L (46-116); ALT/SGPT 24 U/L (7.0-40); AST/SGOT 21 U/L (<34); BILIRUBIN,TOTAL 0.6 MG/DL (0.3-1.2); BLOOD UREA NITROGEN 16 MG/DL (9-23); CARBON DIOXIDE LEVEL 29 MMOL/L (20-31); CHLORIDE LEVEL 97 MMOL/L (98-107); FERRITIN 41.7 NG/ML (7.3-270.7); GLOMERULAR FILTRATION RATE > 60.0 (>39); GLUCOSE, FASTING 86 MG/DL (74-106); POTASSIUM SERUM 4.5 MMOL/L (3.5-5.1); SODIUM LEVEL 133 MMOL/L (136-145); TOTAL PROTEIN 6.4 G/DL (5.7-8.2)
== END ==
LOC: M LABDRWAD 14:25
PROVIDERS: ATTEND Nurse Practitioner
DX: D50.9 Iron deficiency anemia, unspecified (principal)

== ENCOUNTER → 2022-09-19 | Outpatient (CLI) | payer MEDICARE, OTHER ==
[2022-09-19 16:13] LABS: BASO # 0.1 10^3/uL (0.0-0.2); BASO % 0.9 % (0.0-1.0); EOS # 0.2 10^3/uL (0.0-0.5); EOS % 2.5 % (0.0-3.0); HEMATOCRIT 39.8 % (36.0-47.0); HEMOGLOBIN 13.6 g/dl (12.0-15.5); LYMPH % 14.7 % (24.0-44.0); MEAN CORPUSCULAR HEMOGLOBIN 31.2 pg (27.0-33.0); MEAN CORPUSCULAR HGB CONC 34.2 g/dl (32.0-36.5); MEAN CORPUSCULAR VOLUME 91.3 fl (80.0-96.0); MONO # 0.5 10^3/uL (0.0-0.8); MONO % 7.4 % (2.0-8.0); NEUTROPHILS # 4.8 10^3/uL (1.5-8.5); NEUTROPHILS % 74.2 % (36.0-66.0); PLATELET COUNT, AUTOMATED 285 10^3/uL (150-450); RED BLOOD COUNT 4.36 10^6/uL (4.00-5.40); WHITE BLOOD COUNT 6.5 10^3/uL (4.0-10.0)
[2022-09-19 16:16] LABS: IRON (FE) 53 UG/DL (50-170); PERCENT SATURATION 17.7 % (13.2-45.0); TOTAL IRON BINDING CAPACITY 300 UG/DL (250-425)
[2022-09-19 16:19] LABS: FERRITIN 41.1 NG/ML (7.3-270.7)
[2022-09-19 16:20] LABS: ALBUMIN 3.8 G/DL (3.2-5.2); ALKALINE PHOSPHATASE 71 U/L (46-116); ALT/SGPT < 9 U/L (7.0-40); AST/SGOT 16 U/L (<34); BILIRUBIN,TOTAL 0.7 MG/DL (0.3-1.2); BLOOD UREA NITROGEN 8 MG/DL (9-23); CALCIUM LEVEL 9.3 MG/DL (8.3-10.6); CARBON DIOXIDE LEVEL 30 MMOL/L (20-31); CHLORIDE LEVEL 94 MMOL/L (98-107); CREATININE FOR GFR 0.76 MG/DL (0.55-1.30); GLOMERULAR FILTRATION RATE > 60.0 (>39); GLUCOSE, FASTING 91 MG/DL (74-106); POTASSIUM SERUM 4.1 MMOL/L (3.5-5.1); SODIUM LEVEL 129 MMOL/L (136-145); TOTAL PROTEIN 6.5 G/DL (5.7-8.2)
== END ==
LOC: M LABDRWAD 13:34
PROVIDERS: ATTEND Nurse Practitioner
DX: D50.9 Iron deficiency anemia, unspecified (principal)

== ENCOUNTER → 2022-10-01 | Outpatient (REF) | payer MEDICARE, OTHER ==
[2022-10-01 17:02] LABS: BASO % 0.8 % (0.0-1.0); EOS # 0.2 10^3/uL (0.0-0.5); EOS % 3.4 % (0.0-3.0); HEMATOCRIT 37.8 % (36.0-47.0); HEMOGLOBIN 12.8 g/dl (12.0-15.5); LYMPH # 1.1 10^3/uL (1.5-5.0); MEAN CORPUSCULAR HEMOGLOBIN 31.1 pg (27.0-33.0); MEAN CORPUSCULAR HGB CONC 33.9 g/dl (32.0-36.5); MEAN CORPUSCULAR VOLUME 91.7 fl (80.0-96.0); MONO # 0.4 10^3/uL (0.0-0.8); MONO % 7.9 % (2.0-8.0); NEUTROPHILS # 3.6 10^3/uL (1.5-8.5); NEUTROPHILS % 67.3 % (36.0-66.0); PLATELET COUNT, AUTOMATED 299 10^3/uL (150-450); RED BLOOD COUNT 4.12 10^6/uL (4.00-5.40); WHITE BLOOD COUNT 5.3 10^3/uL (4.0-10.0)
[2022-10-01 17:28] LABS: ALBUMIN 3.9 G/DL (3.2-5.2); ALKALINE PHOSPHATASE 62 U/L (46-116); ALT/SGPT 35 U/L (7.0-40); AST/SGOT 26 U/L (<34); BILIRUBIN,TOTAL 0.7 MG/DL (0.3-1.2); BLOOD UREA NITROGEN 12 MG/DL (9-23); CALCIUM LEVEL 9.4 MG/DL (8.3-10.6); CARBON DIOXIDE LEVEL 30 MMOL/L (20-31); CHLORIDE LEVEL 96 MMOL/L (98-107); CHOLESTEROL LEVEL 277 MG/DL (<200); CHOLESTEROL RISK RATIO 4.17 (<5); CREATININE FOR GFR 0.75 MG/DL (0.55-1.30); GLOMERULAR FILTRATION RATE > 60.0 (>39); GLUCOSE, FASTING 88 MG/DL (74-106); HDL CHOLESTEROL 66.4 MG/DL (>40); LDL CHOLESTEROL 191.8 MG/DL (<100); NON-HDL-C 210.6 MG/DL; POTASSIUM SERUM 3.4 MMOL/L (3.5-5.1); SODIUM LEVEL 132 MMOL/L (136-145); TOTAL PROTEIN 6.6 G/DL (5.7-8.2); TRIGLYCERIDES LEVEL 94 MG/DL (<150)
[2022-10-01 17:31] LABS: THYROID STIMULATING HORMONE 1.749 uIU/ML (0.55-4.78); TOTAL 25(OH) VITAMIN D 43.6 NG/ML (20.0-100.0)
== END ==
LOC: M SFHCADAM 13:31
PROVIDERS: ATTEND Physician Assistant Medical
DX: I11.9 Hypertensive heart disease without heart failure (principal); D50.9 Iron deficiency anemia, unspecified; E78.2 Mixed hyperlipidemia; Z79.899 Other long term (current) drug therapy

== ENCOUNTER → 2023-01-02 | Outpatient (REF) | payer MEDICARE, OTHER ==
[~2023-01-02] MED LIST changes: +ALBU8.5H INH; +LEVO1TAB40 PO; +MIRA3350 PO; +ROSU20TA61
[2023-01-02 15:52] LABS: APPEARANCE, URINE HAZY (CLEAR); BACTERIA, URINE AUTO 1+ (NEGATIVE); BILIRUBIN, URINE AUTO NEGATIVE (NEGATIVE); BLOOD, URINE BLOOD 2+ (NEGATIVE); COLOR, URINE STRAW (YELLOW); GLUCOSE, URINE (UA) AUTO NEGATIVE (NEGATIVE); KETONE, URINE AUTO TRACE mg/dL (NEGATIVE); LEUKOCYTE ESTERASE, URINE AUTO 3+ (NEGATIVE); NITRITE, URINE AUTO NEGATIVE (NEGATIVE); PROTEIN, URINE AUTO 1+ mg/dL (NEGATIVE); RBC, URINE AUTO 19 /HPF (0-3); SPECIFIC GRAVITY URINE AUTO 1.006 (1.002-1.035); SQUAMOUS EPITHELIAL CELL UR AU 0 /HPF (0-6); UROBILINOGEN, URINE AUTO 0.2 mg/dL (0.0-2.0); WBC, URINE AUTO 103 /HPF (0-3)
== END ==
LOC: M SFHCADAM 15:02
PROVIDERS: ATTEND Family Medicine
DX: N30.00 Acute cystitis without hematuria (principal)

== ENCOUNTER → 2023-01-28 | Outpatient (REF) | payer MEDICARE, OTHER ==
[2023-01-28 14:04] LABS: BASO # 0.1 10^3/uL (0.0-0.2); BASO % 1.1 % (0.0-1.0); EOS # 0.2 10^3/uL (0.0-0.5); HEMATOCRIT 39.5 % (36.0-47.0); HEMOGLOBIN 12.9 g/dl (12.0-15.5); LYMPH # 1.3 10^3/uL (1.5-5.0); LYMPH % 17.3 % (24.0-44.0); MEAN CORPUSCULAR HGB CONC 32.7 g/dl (32.0-36.5); MONO # 0.6 10^3/uL (0.0-0.8); NEUTROPHILS # 5.2 10^3/uL (1.5-8.5); NEUTROPHILS % 71.3 % (36.0-66.0); PLATELET COUNT, AUTOMATED 263 10^3/uL (150-450); RED BLOOD COUNT 4.03 10^6/uL (4.00-5.40); WHITE BLOOD COUNT 7.3 10^3/uL (4.0-10.0)
[2023-01-28 14:39] LABS: FERRITIN 22.2 NG/ML (7.3-270.7)
[2023-01-28 14:41] LABS: VITAMIN B12 LEVEL 648 PG/ML (211-911)
[2023-01-28 14:42] LABS: ALBUMIN 4.1 G/DL (3.2-5.2); ALKALINE PHOSPHATASE 70 U/L (46-116); ALT/SGPT 24 U/L (7.0-40); AST/SGOT 23 U/L (<34); BILIRUBIN,TOTAL 0.9 MG/DL (0.3-1.2); BLOOD UREA NITROGEN 18 MG/DL (9-23); CALCIUM LEVEL 9.8 MG/DL (8.3-10.6); CARBON DIOXIDE LEVEL 31 MMOL/L (20-31); CHLORIDE LEVEL 99 MMOL/L (98-107); CREATININE FOR GFR 0.65 MG/DL (0.55-1.30); GLOMERULAR FILTRATION RATE > 60.0 (>39); GLUCOSE, FASTING 95 MG/DL (74-106); IRON (FE) 114 UG/DL (50-170); PERCENT SATURATION 35.6 % (13.2-45.0); POTASSIUM SERUM 4.9 MMOL/L (3.5-5.1); SODIUM LEVEL 139 MMOL/L (136-145); TOTAL IRON BINDING CAPACITY 320 UG/DL (250-425); TOTAL PROTEIN 7.1 G/DL (5.7-8.2)
== END ==
LOC: M LABDRWAD 12:30
PROVIDERS: ATTEND Nurse Practitioner
DX: D50.9 Iron deficiency anemia, unspecified (principal); J06.9 Acute upper respiratory infection, unspecified; I10 Essential (primary) hypertension; Z79.899 Other long term (current) drug therapy; Z87.891 Personal history of nicotine dependence

== ENCOUNTER → 2023-04-07 | Outpatient (REF) | payer MEDICARE, OTHER ==
[2023-04-07 13:54] LABS: BASO # 0.1 10^3/uL (0.0-0.2); BASO % 1.6 % (0.0-1.0); EOS # 0.3 10^3/uL (0.0-0.5); EOS % 3.9 % (0.0-3.0); HEMATOCRIT 32.4 % (36.0-47.0); HEMOGLOBIN 10.3 g/dl (12.0-15.5); LYMPH # 1.3 10^3/uL (1.5-5.0); LYMPH % 19.3 % (24.0-44.0); MEAN CORPUSCULAR HGB CONC 31.8 g/dl (32.0-36.5); MEAN CORPUSCULAR VOLUME 91.3 fl (80.0-96.0); MONO # 0.7 10^3/uL (0.0-0.8); MONO % 9.9 % (2.0-8.0); NEUTROPHILS # 4.4 10^3/uL (1.5-8.5); NEUTROPHILS % 64.9 % (36.0-66.0); PLATELET COUNT, AUTOMATED 322 10^3/uL (150-450); RED BLOOD COUNT 3.55 10^6/uL (4.00-5.40); WHITE BLOOD COUNT 6.8 10^3/uL (4.0-10.0)
[2023-04-07 14:18] LABS: THYROID STIMULATING HORMONE 2.387 uIU/ML (0.55-4.78); TOTAL 25(OH) VITAMIN D 36.9 NG/ML (20.0-100.0)
[2023-04-07 14:21] LABS: IRON (FE) 23 UG/DL (50-170)
[2023-04-07 14:25] LABS: ALBUMIN 3.8 G/DL (3.2-5.2); ALKALINE PHOSPHATASE 67 U/L (46-116); ALT/SGPT 25 U/L (7.0-40); AST/SGOT 27 U/L (<34); BILIRUBIN,TOTAL 0.6 MG/DL (0.3-1.2); BLOOD UREA NITROGEN 15 MG/DL (9-23); CALCIUM LEVEL 9.5 MG/DL (8.3-10.6); CARBON DIOXIDE LEVEL 29 MMOL/L (20-31); CHLORIDE LEVEL 103 MMOL/L (98-107); CHOLESTEROL LEVEL 192 MG/DL (<200); CHOLESTEROL RISK RATIO 1.66 (<5); CREATININE FOR GFR 0.86 MG/DL (0.55-1.30); GLOMERULAR FILTRATION RATE > 60.0 (>39); GLUCOSE, FASTING 99 MG/DL (74-106); HDL CHOLESTEROL 115.3 MG/DL (>40); LDL CHOLESTEROL 63.5 MG/DL (<100); NON-HDL-C 76.7 MG/DL; POTASSIUM SERUM 5.5 MMOL/L (3.5-5.1); SODIUM LEVEL 141 MMOL/L (136-145); TOTAL PROTEIN 6.9 G/DL (5.7-8.2); TRIGLYCERIDES LEVEL 66 MG/DL (<150)
== END ==
LOC: M SFHCADAM 10:38
PROVIDERS: ATTEND Physician Assistant Medical
DX: I11.9 Hypertensive heart disease without heart failure (principal); D50.9 Iron deficiency anemia, unspecified; E78.2 Mixed hyperlipidemia; Z79.899 Other long term (current) drug therapy

== ENCOUNTER 2023-04-23 13:14 | Outpatient (CLI) | payer MEDICARE, OTHER ==
[~2023-04-23] VITALS: Ht 149.9 cm; Wt 55.0 kg
[~2023-04-23 13:14] MED LIST changes: +ALBUTEROL SULFATE 2.5MG/0.5ML INH NEB SOLN INH PRN; +EPINEPHrine INJ 1 MG/ML 1ML AMP IM PRN; +diphenhydrAMINE 50MG/ML VIAL IV PRN; +methylPREDNISolone 125MG 2ML VIAL IV PRN
[2023-04-23 14:00] VITALS: BP 142/72; O2SAT 100
[2023-04-23] MEDS ORDERED: IRON SUCROSE 300 MG in NS 250 ML OVER 90 MIN. IV ONE (14:00)
[2023-04-23] MEDS ORDERED: ACETAMINOPHEN TAB 650MG DOSE (2X325MG) PO ONE (14:00)
[2023-04-23] MEDS ORDERED: dexAMETHasone 20MG/5ML VIAL IV ONE (14:00)
[2023-04-23] MEDS ORDERED: diphenhydrAMINE 25MG CAP PO ONE (14:00)
[2023-04-23] MEDS ORDERED: NS 1,000 ML IV SCH (14:00)
[2023-04-23 16:35] VITALS: BP 146/76; O2SAT 99
== END 2023-04-23 16:35 | disposition home or self-care (01) ==
LOC: M INFU 13:14
PROVIDERS: ATTEND Physician Assistant Medical
DX: D50.9 Iron deficiency anemia, unspecified (principal); Z88.0 Allergy status to penicillin
CPT/HCPCS: 96365; 96366; 96375; J1100; J1756

== ENCOUNTER → 2023-05-19 | Outpatient (REF) | payer MEDICARE, OTHER ==
[~2023-05-19] MED LIST changes: -ALBUTEROL SULFATE 2.5MG/0.5ML INH NEB SOLN INH PRN; -EPINEPHrine INJ 1 MG/ML 1ML AMP IM PRN; -diphenhydrAMINE 50MG/ML VIAL IV PRN; -methylPREDNISolone 125MG 2ML VIAL IV PRN
[2023-05-19 17:39] LABS: BASO # 0.1 10^3/uL (0.0-0.2); BASO % 1.2 % (0.0-1.0); EOS # 0.1 10^3/uL (0.0-0.5); EOS % 1.7 % (0.0-3.0); HEMATOCRIT 37.5 % (36.0-47.0); HEMOGLOBIN 11.9 g/dl (12.0-15.5); LYMPH # 1.7 10^3/uL (1.5-5.0); LYMPH % 21.5 % (24.0-44.0); MEAN CORPUSCULAR HEMOGLOBIN 28.3 pg (27.0-33.0); MEAN CORPUSCULAR HGB CONC 31.7 g/dl (32.0-36.5); MEAN CORPUSCULAR VOLUME 89.1 fl (80.0-96.0); MONO # 0.7 10^3/uL (0.0-0.8); NEUTROPHILS # 5.1 10^3/uL (1.5-8.5); NEUTROPHILS % 66.1 % (36.0-66.0); PLATELET COUNT, AUTOMATED 293 10^3/uL (150-450); RED BLOOD COUNT 4.21 10^6/uL (4.00-5.40); WHITE BLOOD COUNT 7.8 10^3/uL (4.0-10.0)
[2023-05-19 17:54] LABS: IRON (FE) 77 UG/DL (50-170); PERCENT SATURATION 21.2 % (13.2-45.0); TOTAL IRON BINDING CAPACITY 364 UG/DL (250-425)
[2023-05-19 17:55] LABS: ALBUMIN 4.2 G/DL (3.2-5.2); ALKALINE PHOSPHATASE 73 U/L (46-116); ALT/SGPT 25 U/L (7.0-40); AST/SGOT 24 U/L (<34); BILIRUBIN,TOTAL 0.6 MG/DL (0.3-1.2); BLOOD UREA NITROGEN 19 MG/DL (9-23); CARBON DIOXIDE LEVEL 28 MMOL/L (20-31); CHLORIDE LEVEL 100 MMOL/L (98-107); CREATININE FOR GFR 0.89 MG/DL (0.55-1.30); GLOMERULAR FILTRATION RATE > 60.0 (>39); GLUCOSE, FASTING 96 MG/DL (74-106); POTASSIUM SERUM 5.4 MMOL/L (3.5-5.1); SODIUM LEVEL 135 MMOL/L (136-145)
[2023-05-19 17:56] LABS: FERRITIN 32.8 NG/ML (7.3-270.7); VITAMIN B12 LEVEL 701 PG/ML (211-911)
== END ==
LOC: M LABDRWAD 16:44
PROVIDERS: ATTEND Nurse Practitioner
DX: D50.9 Iron deficiency anemia, unspecified (principal)

== ENCOUNTER 2023-07-30 12:59 | Outpatient (CLI) | payer MEDICARE, OTHER ==
[~2023-07-30] VITALS: Ht 149.9 cm; Wt 56.0 kg
[~2023-07-30 12:59] MED LIST changes: -DOCU-153 PO; +STOO100C30 PO
[2023-07-30] MEDS ORDERED: ACETAMINOPHEN 325 MG TAB As Ordered ONE (13:13)
[2023-07-30 13:30] VITALS: O2SAT 100
[2023-07-30 13:31] VITALS: BP 160/80
[2023-07-30] MEDS: ACETAMINOPHEN 325 MG TAB PO ONE (13:32)
[2023-07-30] MEDS: dexAMETHasone 4 MG TAB PO ONE (13:32)
[2023-07-30] MEDS: FERRIC CARBOXYMALTOSE INJ 750 MG in NS 250 ML (>50kg) IV ONE (14:00)
[2023-07-30 15:42] VITALS: BP 160/98; O2SAT 100
[2023-07-30 16:00] VITALS: BP 186/90; O2SAT 100
[2023-07-30 17:35] VITALS: BP 153/90; O2SAT 98
== END 2023-07-30 16:00 ==
LOC: M INFU 12:59
PROVIDERS: ATTEND Physician Assistant
DX: D50.9 Iron deficiency anemia, unspecified (principal); Z88.0 Allergy status to penicillin
CPT/HCPCS: 96365; J1439

== ENCOUNTER 2023-08-08 14:24 | Outpatient (CLI) | payer MEDICARE, OTHER ==
[~2023-08-08] VITALS: Ht 149.9 cm; Wt 57.7 kg
[2023-08-08 14:15] VITALS: BP 150/82; O2SAT 100
[2023-08-08 14:25] VITALS: BP 146/84; O2SAT 100
[2023-08-08] MEDS: ACETAMINOPHEN TAB 650MG DOSE (2X325MG) PO ONE (14:31)
[2023-08-08] MEDS: dexAMETHasone 4 MG TAB PO ONE (14:31)
[2023-08-08] MEDS: FERRIC CARBOXYMALTOSE INJ 750 MG in NS 250 ML (>50kg) IV ONE (14:51)
== END 2023-08-08 16:15 | disposition home or self-care (01) ==
LOC: M INFU 14:24
PROVIDERS: ATTEND Nurse Practitioner
DX: D50.9 Iron deficiency anemia, unspecified (principal); Z88.0 Allergy status to penicillin
CPT/HCPCS: 96365; J1439

== ENCOUNTER → 2023-09-08 | Outpatient (REF) | payer MEDICARE, OTHER ==
[2023-09-08 18:34] LABS: BASO # 0.1 10^3/uL (0.0-0.2); EOS # 0.1 10^3/uL (0.0-0.5); EOS % 1.9 % (0.0-3.0); HEMATOCRIT 37.8 % (36.0-47.0); HEMOGLOBIN 12.2 g/dl (12.0-15.5); LYMPH # 1.3 10^3/uL (1.5-5.0); LYMPH % 20.1 % (24.0-44.0); MEAN CORPUSCULAR HEMOGLOBIN 32.8 pg (27.0-33.0); MEAN CORPUSCULAR HGB CONC 32.3 g/dl (32.0-36.5); MEAN CORPUSCULAR VOLUME 101.6 fl (80.0-96.0); MONO # 0.6 10^3/uL (0.0-0.8); MONO % 8.2 % (2.0-8.0); NEUTROPHILS # 4.6 10^3/uL (1.5-8.5); NEUTROPHILS % 68.5 % (36.0-66.0); PLATELET COUNT, AUTOMATED 229 10^3/uL (150-450); RED BLOOD COUNT 3.72 10^6/uL (4.00-5.40); WHITE BLOOD COUNT 6.7 10^3/uL (4.0-10.0)
[2023-09-08 19:02] LABS: ALBUMIN 3.5 G/DL (3.2-5.2); ALKALINE PHOSPHATASE 84 U/L (46-116); ALT/SGPT 17 U/L (7.0-40); AST/SGOT 21 U/L (<34); BILIRUBIN,TOTAL 0.3 MG/DL (0.3-1.2); BLOOD UREA NITROGEN 25 MG/DL (9-23); CALCIUM LEVEL 9.3 MG/DL (8.3-10.6); CARBON DIOXIDE LEVEL 29 MMOL/L (20-31); CHLORIDE LEVEL 103 MMOL/L (98-107); CREATININE FOR GFR 0.85 MG/DL (0.55-1.30); GLOMERULAR FILTRATION RATE > 60.0 (>39); GLUCOSE, FASTING 98 MG/DL (74-106); IRON (FE) 71 UG/DL (50-170); POTASSIUM SERUM 4.3 MMOL/L (3.5-5.1); SODIUM LEVEL 141 MMOL/L (136-145); TOTAL PROTEIN 6.5 G/DL (5.7-8.2)
[2023-09-08 19:03] LABS: PERCENT SATURATION 22.3 % (13.2-45.0); TOTAL IRON BINDING CAPACITY 318 UG/DL (250-425)
[2023-09-08 19:06] LABS: FERRITIN 109.3 NG/ML (7.3-270.7)
== END ==
LOC: M LABDRWAD 17:09 → M LAB REF 17:09
PROVIDERS: ATTEND Nurse Practitioner
DX: D50.9 Iron deficiency anemia, unspecified (principal)

== ENCOUNTER → 2023-10-15 | Outpatient (REF) | payer MEDICARE, OTHER ==
[2023-10-15 13:14] LABS: BASO # 0.1 10^3/uL (0.0-0.2); EOS # 0.1 10^3/uL (0.0-0.5); EOS % 1.8 % (0.0-3.0); HEMOGLOBIN 12.2 g/dl (12.0-15.5); LYMPH # 1.2 10^3/uL (1.5-5.0); MEAN CORPUSCULAR HEMOGLOBIN 32.2 pg (27.0-33.0); MEAN CORPUSCULAR HGB CONC 33.9 g/dl (32.0-36.5); MONO # 0.7 10^3/uL (0.0-0.8); NEUTROPHILS # 4.7 10^3/uL (1.5-8.5); NEUTROPHILS % 68.9 % (36.0-66.0); PLATELET COUNT, AUTOMATED 241 10^3/uL (150-450); RED BLOOD COUNT 3.79 10^6/uL (4.00-5.40); WHITE BLOOD COUNT 6.8 10^3/uL (4.0-10.0)
[2023-10-15 13:28] LABS: HEMOGLOBIN A1c 4.8 % (4.0-6.0)
[2023-10-15 13:44] LABS: IRON (FE) 78 UG/DL (50-170); PERCENT SATURATION 22.5 % (13.2-45.0); TOTAL IRON BINDING CAPACITY 346 UG/DL (250-425)
[2023-10-15 13:46] LABS: ALBUMIN 3.6 G/DL (3.2-5.2); ALKALINE PHOSPHATASE 79 U/L (46-116); ALT/SGPT 17 U/L (7.0-40); AST/SGOT 16 U/L (<34); BILIRUBIN,TOTAL 0.5 MG/DL (0.3-1.2); BLOOD UREA NITROGEN 13 MG/DL (9-23); CALCIUM LEVEL 9.2 MG/DL (8.3-10.6); CARBON DIOXIDE LEVEL 29 MMOL/L (20-31); CHLORIDE LEVEL 103 MMOL/L (98-107); CHOLESTEROL LEVEL 135 MG/DL (<200); CHOLESTEROL RISK RATIO 1.73 (<5); CREATININE FOR GFR 0.76 MG/DL (0.55-1.30); GLOMERULAR FILTRATION RATE > 60.0 (>39); GLUCOSE, FASTING 80 MG/DL (74-106); HDL CHOLESTEROL 77.8 MG/DL (>40); NON-HDL-C 57.2 MG/DL; POTASSIUM SERUM 4.5 MMOL/L (3.5-5.1); SODIUM LEVEL 139 MMOL/L (136-145); TOTAL PROTEIN 6.4 G/DL (5.7-8.2); TRIGLYCERIDES LEVEL 91 MG/DL (<150)
[2023-10-15 13:48] LABS: FREE T4 1.11 NG/DL (0.89-1.76); THYROID STIMULATING HORMONE 1.994 uIU/ML (0.55-4.78)
[2023-10-15 13:49] LABS: FERRITIN 40.4 NG/ML (7.3-270.7); TOTAL 25(OH) VITAMIN D 48.2 NG/ML (20.0-100.0)
== END ==
LOC: M SFHCADAM 10:33
PROVIDERS: ATTEND Physician Assistant Medical
DX: I10 Essential (primary) hypertension (principal); D50.9 Iron deficiency anemia, unspecified

== ENCOUNTER → 2023-12-16 | Outpatient (REF) | payer MEDICARE, OTHER ==
[2023-12-16 19:11] LABS: BASO # 0.1 10^3/uL (0.0-0.2); EOS # 0.1 10^3/uL (0.0-0.5); EOS % 1.1 % (0.0-3.0); HEMOGLOBIN 12.7 g/dl (12.0-15.5); LYMPH # 1.6 10^3/uL (1.5-5.0); LYMPH % 19.3 % (24.0-44.0); MEAN CORPUSCULAR HEMOGLOBIN 32.2 pg (27.0-33.0); MEAN CORPUSCULAR HGB CONC 33.4 g/dl (32.0-36.5); MEAN CORPUSCULAR VOLUME 96.2 fl (80.0-96.0); MONO # 0.6 10^3/uL (0.0-0.8); MONO % 7.3 % (2.0-8.0); NEUTROPHILS # 5.8 10^3/uL (1.5-8.5); NEUTROPHILS % 71.1 % (36.0-66.0); PLATELET COUNT, AUTOMATED 259 10^3/uL (150-450); RED BLOOD COUNT 3.95 10^6/uL (4.00-5.40); WHITE BLOOD COUNT 8.2 10^3/uL (4.0-10.0)
[2023-12-16 20:04] LABS: VITAMIN B12 LEVEL 611 PG/ML (211-911)
[2023-12-16 20:05] LABS: FERRITIN 17.2 NG/ML (7.3-270.7)
[2023-12-16 20:06] LABS: ALBUMIN 3.9 G/DL (3.2-5.2); ALKALINE PHOSPHATASE 75 U/L (46-116); ALT/SGPT 19 U/L (7.0-40); AST/SGOT 21 U/L (<34); BILIRUBIN,TOTAL 0.5 MG/DL (0.3-1.2); BLOOD UREA NITROGEN 24 MG/DL (9-23); CALCIUM LEVEL 9.7 MG/DL (8.3-10.6); CARBON DIOXIDE LEVEL 28 MMOL/L (20-31); CHLORIDE LEVEL 103 MMOL/L (98-107); CREATININE FOR GFR 0.73 MG/DL (0.55-1.30); GLOMERULAR FILTRATION RATE > 60.0 (>39); GLUCOSE, FASTING 99 MG/DL (74-106); IRON (FE) 67 UG/DL (50-170); PERCENT SATURATION 19.3 % (13.2-45.0); POTASSIUM SERUM 4.9 MMOL/L (3.5-5.1); SODIUM LEVEL 138 MMOL/L (136-145); TOTAL IRON BINDING CAPACITY 347 UG/DL (250-425)
== END ==
LOC: M LABDRWAD 17:45
PROVIDERS: ATTEND Nurse Practitioner
DX: D50.9 Iron deficiency anemia, unspecified (principal)

== ENCOUNTER → 2024-03-25 | Outpatient (REF) | payer MEDICARE, OTHER ==
[~2024-03-25] MED LIST changes: -ROSU20TA61; +ROSU20TA86
[2024-03-25 18:58] LABS: BASO # 0.1 10^3/uL (0.0-0.2); BASO % 1.1 % (0.0-1.0); EOS # 0.1 10^3/uL (0.0-0.5); EOS % 1.2 % (0.0-3.0); HEMATOCRIT 38.5 % (36.0-47.0); HEMOGLOBIN 12.7 g/dl (12.0-15.5); LYMPH # 1.2 10^3/uL (1.5-5.0); LYMPH % 16.4 % (24.0-44.0); MEAN CORPUSCULAR HEMOGLOBIN 32.4 pg (27.0-33.0); MEAN CORPUSCULAR VOLUME 98.2 fl (80.0-96.0); MONO # 0.4 10^3/uL (0.0-0.8); MONO % 5.7 % (2.0-8.0); NEUTROPHILS # 5.6 10^3/uL (1.5-8.5); NEUTROPHILS % 75.3 % (36.0-66.0); PLATELET COUNT, AUTOMATED 281 10^3/uL (150-450); RED BLOOD COUNT 3.92 10^6/uL (4.00-5.40); WHITE BLOOD COUNT 7.4 10^3/uL (4.0-10.0)
[2024-03-25 19:28] LABS: ALBUMIN 3.9 G/DL (3.2-5.2); ALKALINE PHOSPHATASE 74 U/L (35-104); ALT/SGPT 17 U/L (7.0-40); AST/SGOT 18 U/L (<34); BILIRUBIN,TOTAL 0.8 MG/DL (0.3-1.2); BLOOD UREA NITROGEN 13 MG/DL (9-23); CALCIUM LEVEL 9.9 MG/DL (8.3-10.6); CARBON DIOXIDE LEVEL 30 MMOL/L (20-31); CHLORIDE LEVEL 98 MMOL/L (98-107); CREATININE FOR GFR 0.83 MG/DL (0.55-1.30); GLOMERULAR FILTRATION RATE > 60.0 (>39); GLUCOSE, FASTING 99 MG/DL (74-106); IRON (FE) 126 UG/DL (50-170); POTASSIUM SERUM 4.1 MMOL/L (3.5-5.1); SODIUM LEVEL 135 MMOL/L (136-145); TOTAL PROTEIN 6.9 G/DL (5.7-8.2)
[2024-03-25 19:30] LABS: FERRITIN 393.1 NG/ML (7.3-270.7)
[2024-03-25 19:31] LABS: VITAMIN B12 LEVEL 655 PG/ML (211-911)
[2024-03-25 19:50] LABS: PERCENT SATURATION 46.3 % (13.2-45.0); TOTAL IRON BINDING CAPACITY 272 UG/DL (250-425)
== END ==
LOC: M LABDRWAD 17:34
PROVIDERS: ATTEND Specialist
DX: D50.9 Iron deficiency anemia, unspecified (principal)

== ENCOUNTER → 2024-04-21 | Outpatient (REF) | payer MEDICARE, OTHER ==
[2024-04-21 18:31] LABS: BASO # 0.1 10^3/uL (0.0-0.2); BASO % 0.8 % (0.0-1.0); EOS # 0.1 10^3/uL (0.0-0.5); EOS % 1.6 % (0.0-3.0); HEMATOCRIT 39.6 % (36.0-47.0); HEMOGLOBIN 13.2 g/dl (12.0-15.5); LYMPH # 1.6 10^3/uL (1.5-5.0); LYMPH % 20.4 % (24.0-44.0); MEAN CORPUSCULAR HEMOGLOBIN 33.1 pg (27.0-33.0); MEAN CORPUSCULAR HGB CONC 33.3 g/dl (32.0-36.5); MEAN CORPUSCULAR VOLUME 99.2 fl (80.0-96.0); MONO # 0.6 10^3/uL (0.0-0.8); MONO % 8.2 % (2.0-8.0); NEUTROPHILS # 5.3 10^3/uL (1.5-8.5); NEUTROPHILS % 68.7 % (36.0-66.0); PLATELET COUNT, AUTOMATED 279 10^3/uL (150-450); RED BLOOD COUNT 3.99 10^6/uL (4.00-5.40); WHITE BLOOD COUNT 7.7 10^3/uL (4.0-10.0)
[2024-04-21 18:54] LABS: HEMOGLOBIN A1c 4.8 % (4.0-6.0)
[2024-04-21 18:55] LABS: THYROID STIMULATING HORMONE 2.311 uIU/ML (0.55-4.78)
[2024-04-21 18:56] LABS: ALBUMIN 4.1 G/DL (3.2-5.2); ALKALINE PHOSPHATASE 82 U/L (35-104); ALT/SGPT 24 U/L (7.0-40); AST/SGOT 23 U/L (<34); BILIRUBIN,TOTAL 0.7 MG/DL (0.3-1.2); BLOOD UREA NITROGEN 22 MG/DL (9-23); CALCIUM LEVEL 10.4 MG/DL (8.3-10.6); CARBON DIOXIDE LEVEL 30 MMOL/L (20-31); CHLORIDE LEVEL 99 MMOL/L (98-107); CHOLESTEROL LEVEL 192 MG/DL (<200); CHOLESTEROL RISK RATIO 2.31 (<5); CREATININE FOR GFR 0.85 MG/DL (0.55-1.30); FERRITIN 359.3 NG/ML (7.3-270.7); FOLATE > 24.0 NG/ML (>5.4); GLOMERULAR FILTRATION RATE > 60.0 (>39); GLUCOSE, FASTING 99 MG/DL (74-106); HDL CHOLESTEROL 83.1 MG/DL (>40); IRON (FE) 71 UG/DL (50-170); LDL CHOLESTEROL 84.5 MG/DL (<100); NON-HDL-C 108.9 MG/DL; PERCENT SATURATION 25.4 % (13.2-45.0); POTASSIUM SERUM 4.2 MMOL/L (3.5-5.1); SODIUM LEVEL 138 MMOL/L (136-145); TOTAL 25(OH) VITAMIN D 42.4 NG/ML (20.0-100.0); TOTAL IRON BINDING CAPACITY 280 UG/DL (250-425); TOTAL PROTEIN 7.4 G/DL (5.7-8.2); TRIGLYCERIDES LEVEL 122 MG/DL (<150); VITAMIN B12 LEVEL 597 PG/ML (211-911)
[2024-04-21 18:58] LABS: FREE T4 1.25 NG/DL (0.89-1.76)
== END ==
LOC: M SFHCADAM 14:44
PROVIDERS: ATTEND Physician Assistant Medical
DX: I10 Essential (primary) hypertension (principal); I11.9 Hypertensive heart disease without heart failure; D50.9 Iron deficiency anemia, unspecified; K22.719 Barrett's esophagus with dysplasia, unspecified; E78.2 Mixed hyperlipidemia; Z79.899 Other long term (current) drug therapy

== ENCOUNTER → 2024-06-23 | Outpatient (REF) | payer MEDICARE, OTHER ==
[2024-06-23 18:19] LABS: BASO # 0.1 10^3/uL (0.0-0.2); EOS # 0.2 10^3/uL (0.0-0.5); EOS % 1.7 % (0.0-3.0); HEMATOCRIT 31.1 % (36.0-47.0); HEMOGLOBIN 10.3 g/dl (12.0-15.5); LYMPH # 1.9 10^3/uL (1.5-5.0); LYMPH % 20.1 % (24.0-44.0); MEAN CORPUSCULAR HGB CONC 33.1 g/dl (32.0-36.5); MEAN CORPUSCULAR VOLUME 99.7 fl (80.0-96.0); MONO # 0.7 10^3/uL (0.0-0.8); MONO % 7.1 % (2.0-8.0); NEUTROPHILS # 6.5 10^3/uL (1.5-8.5); NEUTROPHILS % 69.7 % (36.0-66.0); PLATELET COUNT, AUTOMATED 330 10^3/uL (150-450); RED BLOOD COUNT 3.12 10^6/uL (4.00-5.40); WHITE BLOOD COUNT 9.3 10^3/uL (4.0-10.0)
[2024-06-23 18:27] LABS: ALBUMIN 3.6 G/DL (3.2-5.2); BILIRUBIN,TOTAL 0.3 MG/DL (0.3-1.2); CALCIUM LEVEL 9.5 MG/DL (8.3-10.6); CREATININE FOR GFR 1.2 MG/DL (0.55-1.30); GLOMERULAR FILTRATION RATE 46.4 (>39); PERCENT SATURATION 22.6 % (13.2-45.0); POTASSIUM SERUM 5.1 MMOL/L (3.5-5.1); TOTAL PROTEIN 6.6 G/DL (5.7-8.2)
[2024-06-23 18:29] LABS: FERRITIN 70.5 NG/ML (7.3-270.7)
== END ==
LOC: M LABDRWAD 17:41
PROVIDERS: ATTEND Nurse Practitioner
DX: D50.9 Iron deficiency anemia, unspecified (principal)

== ENCOUNTER → 2024-07-22 | Outpatient (CLI) | payer MEDICARE, OTHER | LOC: M RAD 12:10 | PROVIDERS: ATTEND Internal Medicine Medical Oncology | DX: N18.9 Chronic kidney disease, unspecified (principal); N28.1 Cyst of kidney, acquired ==

== ENCOUNTER → 2025-02-09 | Outpatient (REF) | payer MEDICARE, OTHER ==
[~2025-02-09] MED LIST changes: +HYDR12.510 PO; -HYDR12CA PO
[2025-02-09 18:39] LABS: BASO # 0.1 10^3/uL (0.0-0.2); BASO % 0.9 % (0.0-1.0); EOS # 0.2 10^3/uL (0.0-0.5); EOS % 1.6 % (0.0-3.0); LYMPH # 1.9 10^3/uL (1.5-5.0); LYMPH % 20.4 % (24.0-44.0); MONO # 0.8 10^3/uL (0.0-0.8); MONO % 8.9 % (2.0-8.0); NEUTROPHILS # 6.3 10^3/uL (1.5-8.5); NEUTROPHILS % 68.0 % (36.0-66.0); PLATELET COUNT, AUTOMATED 295 10^3/uL (150-450)
[2025-02-09 19:02] LABS: ALT/SGPT 21.0 U/L (7.0-40); AST/SGOT 26.0 U/L (<34); CALCIUM LEVEL 9.6 MG/DL (8.3-10.6); CARBON DIOXIDE LEVEL 30.0 MMOL/L (20-31); CHLORIDE LEVEL 97.0 MMOL/L (98-107); CREATININE FOR GFR 0.9 MG/DL (0.55-1.30); GLOMERULAR FILTRATION RATE 65.4 (>39); IRON (FE) 81.0 UG/DL (50-170); PERCENT SATURATION 29.1 % (13.2-45.0); POTASSIUM SERUM 5.0 MMOL/L (3.5-5.1); SODIUM LEVEL 136.0 MMOL/L (136-145)
== END ==
LOC: M LABDRWAD 17:18
PROVIDERS: ATTEND Nurse Practitioner
DX: D50.9 Iron deficiency anemia, unspecified (principal)

== ENCOUNTER → 2025-04-29 | Outpatient (REF) | payer MEDICARE, OTHER ==
[2025-04-29 13:43] LABS: BASO # 0.1 10^3/uL (0.0-0.2); BASO % 1.9 % (0.0-1.0); EOS # 0.2 10^3/uL (0.0-0.5); EOS % 3.4 % (0.0-3.0); LYMPH # 1.5 10^3/uL (1.5-5.0); LYMPH % 28.5 % (24.0-44.0); MONO # 0.6 10^3/uL (0.0-0.8); MONO % 11.6 % (2.0-8.0); NEUTROPHILS # 2.9 10^3/uL (1.5-8.5); NEUTROPHILS % 54.2 % (36.0-66.0); PLATELET COUNT, AUTOMATED 310 10^3/uL (150-450)
[2025-04-29 13:48] LABS: FREE T4 1.45 NG/DL (0.89-1.76)
[2025-04-29 13:50] LABS: ALT/SGPT 15.0 U/L (7.0-40); AST/SGOT 22.0 U/L (<34); CALCIUM LEVEL 9.6 MG/DL (8.3-10.6); CARBON DIOXIDE LEVEL 32.0 MMOL/L (20-31); CHLORIDE LEVEL 100.0 MMOL/L (98-107); CHOLESTEROL LEVEL 191.0 MG/DL (<200); CHOLESTEROL RISK RATIO 2.45 (<5); CREATININE FOR GFR 0.85 MG/DL (0.55-1.30); GLOMERULAR FILTRATION RATE 70.1 (>39); LDL CHOLESTEROL 82.4 MG/DL (<100); NON-HDL-C 113.2 MG/DL; POTASSIUM SERUM 5.4 MMOL/L (3.5-5.1); SODIUM LEVEL 142.0 MMOL/L (136-145); TRIGLYCERIDES LEVEL 154.0 MG/DL (<150)
[2025-04-29 13:52] LABS: TOTAL 25(OH) VITAMIN D 45.0 NG/ML (20.0-100.0)
[2025-04-29 14:06] LABS: ESTIMATED AVERAGE GLUCOSE 103.0 MG/DL (60-110)
== END ==
LOC: M SFHCADAM 11:00
PROVIDERS: ATTEND Physician Assistant Medical
DX: I11.9 Hypertensive heart disease without heart failure (principal); D50.9 Iron deficiency anemia, unspecified; E78.2 Mixed hyperlipidemia; Z79.899 Other long term (current) drug therapy